=== PATIENT | female | born 1955 | race Caucasian/White ===

== ENCOUNTER → 2016-07-25 | Outpatient (CLI) | payer OTHER ==
[~2016-07-25] MED LIST: DEPO METHYLPREDNISOLONE 40 MG/ML SDV ONE; IOPAMIDOL (ISOVUE-370) 150 ML BTL IV ONE; LIDOCAINE 1% 30 ML SDV ONE; NA BICARBONATE 50 MEQ/50 ML VIAL ONE; ROPIVACAINE HCL 150 MG/30 ML INJ ONE
== END ==
LOC: FIMAGING 11:30
PROVIDERS: ATTEND Physician Assistant
PROC: 3E0U33Z Introduction of Anti-inflammatory into Joints, Percutaneous Approach (ICD-10-PCS; principal; 2016-07-25)
PROC: 3E0U3BZ Introduction of Anesthetic Agent into Joints, Percutaneous Approach (ICD-10-PCS; principal; 2016-07-25)
DX: M25.551 Pain in right hip (principal)
CPT/HCPCS: J1020; J2795; Q9967

== ENCOUNTER → 2016-09-23 | Outpatient (CLI) | payer OTHER ==
[~2016-09-23] MED LIST changes: +IOPAMIDOL (ISOVUE 370) 100 ML BTL IV ONE; -IOPAMIDOL (ISOVUE-370) 150 ML BTL IV ONE
== END ==
LOC: FIMAGING 12:41
PROVIDERS: ATTEND Radiology Diagnostic Radiology
PROC: 3E0U33Z Introduction of Anti-inflammatory into Joints, Percutaneous Approach (ICD-10-PCS; principal; 2016-09-23)
DX: M16.0 Bilateral primary osteoarthritis of hip (principal)
CPT/HCPCS: J1030; J2795; Q9967

== ENCOUNTER 2016-11-06 05:43 | Inpatient (IN) | payer OTHER ==
[2016-10-31 09:22] LABS: % IMMATURE GRANULYOCYTES 0.2 % (0.0-1.1); ABSOLUTE IMMATURE GRANULOCYTES 0.01 10^3/uL (0.00-0.10); ADD DIFF? NO; ADD MORPH? NO; ADD SCAN? NO; ATYPICAL LYMPHOCYTE FLAG 10 (0-99); FRAGMENT RBC FLAG 0 (0-99); HEMATOCRIT 44.5 % (38.0-47.0); HEMOGLOBIN 15.4 g/dL (12.6-16.3); LEFT SHIFT FLG 0 (0-99); LIPEMIA HEMOLYSIS FLAG 90 (0-99); MEAN CELL HEMOGLOBIN 31.2 pg (27.9-34.1); MEAN CELL HEMOGLOBIN CONCENTR. 34.6 g/dL (32.4-36.7); MEAN CELL VOLUME 90.3 fL (81.5-99.8); MEAN PLATELET VOLUME 11.5 fL (8.7-11.7); PLATELET CLUMPS FLAG 0 (0-99); PLATELET COUNT 237 10^3/uL (150-400); RED BLOOD CELL COUNT 4.93 10^6/uL (4.18-5.33)
[2016-10-31 09:36] LABS: ANION GAP 12 mEq/L (8-16); CALCIUM 9.7 mg/dL (8.5-10.4); CARBON DIOXIDE 28 mEq/l (22-31); CHLORIDE 98 mEq/L (97-110); GLOMERULAR FILTRATION RATE 56; GLUCOSE 92 mg/dL (70-100); POTASSIUM 4.4 mEq/L (3.5-5.2); SODIUM 138 mEq/L (134-144)
--- NOTE | 2016-11-01 13:59 | GHP ---
[f rep st] PREOP HISTORY AND PHYSICAL DATE OF ADMISSION: 11/06/2016 PROBLEM: Severe left knee OA. HISTORY OF PRESENT ILLNESS: The patient is a 61-year-old female who will be admitted for a left tot al knee arthroplasty with Dr. Durant at the [facility] on November 06. The patient lindquist s had chronic pain of the left knee. Previously, she has had viscosupplementation injections and co rtisone injections. They both helped for short periods of time. She has also tried and failed oral anti-inflammatories, both clfw-brz-gyhspfh and prescription strength. Over the past several weeks and months, the patient has had worsening left knee pain. She has had to alter her physical activit y because of the pain. She has nighttime pain. She does not use a cane or crutch for ambulation. Because of her recalcitrant response to conservative therapies and worsening and debilitating pain, she has elected to proceed with a left total knee arthroplasty. PAST MEDICAL HISTORY: Pertinent for hypertension, migraines, mild metal sensitivities of unknown me tals, arthritis and melanoma. No history of DVT, PE, ID, CAD or hepatitis. CURRENT MEDICATIONS: Clindamycin 1% topical gel, clobetasol 0.05% topical, Estrace 0.01% vaginal cr eam, hydrochlorothiazide 25 mg, losartan 100 mg, Maxalt 10 mg, meloxicam 15 mg, spironolactone 25 mg . ALLERGIES: She has no known drug allergies. She does report narcotics cause vomiting. SOCIAL HISTORY: The patient is a nonsmoker. Occasional alcohol intake. 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 She does live with others. FAMILY HISTORY: Pertinent for diabetes, hypertension, coronary artery disease and cancer. PHYSICAL EXAMINATION: GENERAL: She is a healthy-appearing 61-year-old female. VITALS: Height 5 f eet 7 inches tall, weight 200 pounds, BMI 31.3. HEENT: Head is normocephalic, atraumatic. Eyes ar e PERRLA. Conjunctivae and sclerae are clear. Mouth: She has good oral hygiene without any loose teeth. HEART: Regular rate and rhythm without murmurs, gallops, or rubs. LUNGS: Clear. EXTREMIT IES: Pertinent findings are limited to the patient's left knee. She has full knee extension, 110 d egrees of flexion. The knee is stable to exam. She has moderate patellofemoral crepitus along with medial joint line tenderness. No significant deformity is appreciated. DIAGNOSTIC IMAGING: Recent x-rays taken or the patient's left knee shows advanced medial compartmen t degenerative arthritis and patellofemoral degenerative arthritis. She has peripheral osteophyte f ormation and increased subchondral sclerosis, primarily of the medial compartment. IMPRESSION ON ADMISSION: 1. Severe left knee medial compartment and patellofemoral compartment osteoarthritis. 2. Hypertension. 3. History of occasional migraines. 4. History of melanoma. PLAN: The plan will be for the patient to undergo a left total knee arthroplasty with Dr. Durant at the [facility] on November 06, 2016. The surgery has been described to the patient inc luding the risks, benefits and expectations. She understands the importance of postoperative physic al therapy. She understands the risk of blood vessel or nerve injury, persistent knee pain and/or s tiffness, or need for future revision. All her questions have been answered, and she consents to marlow forrest here in the office today. Copy requested to: Dr. Santino Rosales /[id number]/MODL
[2016-11-06] MEDS ORDERED: DEXAMETHASONE 4 MG/ML VIAL IVP ONE (06:00)
[2016-11-06] MEDS ORDERED: TRANEXAMIC ACID 900 MG in NS 100 ML IV ONE (06:00)
[2016-11-06] MEDS ORDERED: FAMOTIDINE 20 MG TAB PO ONE (06:00)
[2016-11-06] MEDS ORDERED: ACETAMINOPHEN 325 MG TAB PO ONE (06:00)
[2016-11-06] MEDS ORDERED: POVIDONE-IODINE 20 ML in SODIUM CL IRRIG SOLUTION 500 ML IRR ONE (06:00)
[2016-11-06] MEDS ORDERED: ROPI/epINEPH/KETOROLAC IU ONE (06:00)
[2016-11-06] MEDS ORDERED: LIDOCAINE 1% 5 ML SDV ID PRN (06:08)
[2016-11-06] MEDS ORDERED: LR 1,000 ML IV ONE (06:08)
[2016-11-06] MEDS ORDERED: ceFAZolin 1 GM/5 ML SYR ONE (06:35)
[2016-11-06] MEDS ORDERED: VANCOMYCIN 1 GM VIAL ONE ×2 (06:35→06:36)
--- NOTE | 2016-11-06 06:55 | PDANEPAE ---
ANE History of Present Illness Osteoarthritis ANE Past Medical History - Cardiovascular History Hx Hypertension: Yes Hx Arrhythmias: No Hx Chest Pain: No Hx Coronary Artery / Peripheral Vascular Disease: No Hx CHF / Valvular Disease: No Hx Palpitations: No - Pulmonary History Hx COPD: No Hx Asthma/Reactive Airway Disease: No Hx Recent Upper Respiratory Infection: No Hx Oxygen in Use at Home: No - Neurologic History Hx Cerebrovascular Accident: No Hx Seizures: No Hx Dementia: No - Endocrine History Hx Diabetes: No - Renal History Hx Renal Disorders: No - Liver History Hx Hepatic Disorders: No - Neurological & Psychiatric Hx Hx Neurological and Psychiatric Disorders: Yes - Cancer History Hx Cancer: No - Congenital Disorder History Hx Congenital Disorders: No - GI History Hx Gastrointestinal Disorders: No - Chronic Pain History Chronic Pain: Yes ANE Review of Systems - Exercise capacity METS (RN): 4 METS - Systems Neurological: Reports: other (Fibromyalgia, but no specific treatment) ANE Patient History - Allergies Allergies/Adverse Reactions: No Known Allergies Allergy (Unverified 10/22/16 14:40) - Home Medications Home Medications: Cholecalciferol Vit D3 [Vitamin D3 (*)] 1,000 units PO DAILY 10/22/16 [Last Taken Unknown] Cyanocobalamin [Vitamin B12 (*)] 1,000 mcg PO DAILY 10/22/16 [Last Taken Unknown ] Estradiol [Estrace Vaginal (*)] 42.5 gm VG Q3D 10/22/16 [Last Taken Unknown] Glucosamine/Chondroitin [Glucosamine/Chondroitin (*)] 1 each PO DAILY 10/22/16 [ Last Taken Unknown] Hydrochlorothiazide [HCTZ (*)] 25 mg PO DAILY 10/22/16 [Last Taken Unknown] Losartan Potassium [Cozaar] 100 mg PO DAILY 10/22/16 [Last Taken Unknown] Meloxicam 15 mg PO DAILY 10/22/16 [Last Taken Unknown] Multivitamins [Multivitamin (*)] 1 each PO DAILY 10/22/16 [Last Taken Unknown] Spironolactone [Aldactone 25 MG (*)] 25 mg PO BID 10/22/16 [Last Taken Unknown] - NPO status NPO Since - Liquids (Date): 11/05/16 NPO Since - Liquids (Time): 21:30 NPO Since - Solids (Date): 11/05/16 NPO Since - Solids (Time): 21:30 - Smoking Hx Smoking Status: Never smoked - Family Anes Hx Family Hx Anesthesia Complications: none ANE Labs/Vital Signs - Labs Result Diagrams: 10/31/16 09:12 10/31/16 09:12 - Vital Signs Blood Pressure: 157/94 Heart Rate: 59 Respiratory Rate: 18 O2 Sat (%): 95 Height: 170.18 cm Weight: 90.718 kg
--- NOTE | 2016-11-06 07:01 | PDHPUP ---
History & Physical Update H&P update statement: This history and physical update is based on an assessment of the patient which was completed after admission or registration (within 24 hours), but prior to the surgery/procedure. H&P update: H&P reviewed & patient examined, no change in patient's condition since H&P completed
[2016-11-06] MEDS ORDERED: KETAMINE 100 MG/10 ML SYR ONE (07:02)
[2016-11-06] MEDS ORDERED: PROPOFOL/EMULSION 500 MG/50 ML BOTTLE IV ONE (07:02)
[2016-11-06] MEDS ORDERED: ONDANSETRON 4 MG/2 ML VIAL ONE (07:02)
[2016-11-06] MEDS ORDERED: fentaNYL 100 MCG/2 ML INJ ONE (07:02)
[2016-11-06] MEDS ORDERED: BUPIVACAINE/EPI 0.25% 30 ML SDV ONE (07:04)
[2016-11-06] MEDS ORDERED: DEXAMETHASONE 4 MG/ML VIAL ONE (07:09)
[2016-11-06] MEDS: CEFAZOLIN 2 GM/DEXTR 100 ML IV ONE ×2 (07:25→10:51)
[2016-11-06] MEDS ORDERED: NALOXONE HCL 0.4 MG/ML INJ IVP PRN (08:06)
[2016-11-06] MEDS ORDERED: fentaNYL 100 MCG/2 ML INJ IVP PRN (08:06)
[2016-11-06] MEDS ORDERED: ACETAMINOPHEN 500 MG TAB PO PRN (08:06)
[2016-11-06] MEDS ORDERED: HYDROmorphONE/DILAUDID 1 MG/ML SYR IVP PRN (08:06)
[2016-11-06] MEDS ORDERED: OXYCODONE/APAP 5/325 TAB PO PRN (08:06)
[2016-11-06] MEDS ORDERED: ONDANSETRON 4 MG/2 ML VIAL IVP PRN ×2 (08:12→09:11)
[2016-11-06] MEDS ORDERED: MEPERIDINE 25 MG/ML SYR IVP PRN (08:12)
[2016-11-06] MEDS ORDERED: LABETALOL HCL 5 MG/ML 20 ML MDV IVP PRN (08:12)
[2016-11-06] MEDS ORDERED: METOCLOPRAMIDE 10 MG/2 ML VIAL IVP PRN ×2 (08:12→09:11)
[2016-11-06] MEDS ORDERED: LR 500 ML IV PRN (08:12)
[2016-11-06] MEDS ORDERED: ENALAPRILAT DIHYDRATE 1.25 MG/ML VIAL IVP PRN (08:12)
[2016-11-06] MEDS ORDERED: PROMETHAZINE HCL 25 MG/ML INJ IVP PRN ×2 (08:12→09:11)
--- NOTE | 2016-11-06 09:01 | POSTOPPROG ---
Post Op Note Date of Operation: 11/06/16 Surgeon: Jeremy Durant [employer]itary Landfill Supervisor: Edgar Anesthesiologist: Safia Anesthesia: IV Sedation, Spinal Post-op Diagnosis: L knee arthritis Procedure: L TKA Inf/Abcess present in the surg proc area at time of surgery?: No EBL: 50-100 (add canal block)
[2016-11-06] MEDS ORDERED: PROMETHAZINE HCL 25 MG SUPPR PR PRN (09:11)
[2016-11-06] MEDS ORDERED: NS 500 ML IV PRN (09:11)
[2016-11-06] MEDS ORDERED: BISACODYL 10 MG SUPP PR PRN (09:11)
[2016-11-06] MEDS ORDERED: MAGNESIUM HYDROXIDE 30 ML UDCUP PO PRN (09:11)
[2016-11-06] MEDS ORDERED: diphenhydrAMINE 25 MG CAP PO PRN (09:11)
[2016-11-06] MEDS ORDERED: ONDANSETRON DISINTEGRATING 4 MG TAB PO PRN (09:11)
[2016-11-06] MEDS ORDERED: TEMAZEPAM 15 MG CAP PO PRN (09:11)
[2016-11-06] MEDS ORDERED: CYCLOBENZAPRINE 10 MG TAB PO PRN (09:11)
[2016-11-06] MEDS ORDERED: traMADol 50 MG TAB PO PRN (09:11)
[2016-11-06] MEDS ORDERED: LACTULOSE 20 GM/30 ML UDCUP PO PRN (09:11)
[2016-11-06] MEDS ORDERED: DIPHENOXYLATE/ATROPINE LOMOTIL 1 TAB PO PRN (09:11)
[2016-11-06] MEDS ORDERED: POLYETHYLENE GLYCOL 3350 17 GM PKT PO PRN (09:11)
[2016-11-06] MEDS ORDERED: PHARMACY PAIN CONSULT 1 EA MISC PRN (09:11)
[2016-11-06] MEDS ORDERED: LR 1,000 ML IV SCH (09:30)
--- NOTE | 2016-11-06 09:59 | GOP ---
[f rep st] OPERATIVE REPORT DATE OF OPERATION: 11/06/2016 SURGEON: Jeremy Durant MD PENSION MANAGER: 1. Onel Walden CFA. 2. Avery Son PA-C. ANESTHESIA: Combination of Marcaine, spinal, IV sedation, and adductor canal block. ANESTHESIOLOGIST: José Miguel Baig MD. PREOPERATIVE DIAGNOSIS: Left knee severe degenerative arthritis. POSTOPERATIVE DIAGNOSIS: Left knee severe degenerative arthritis. PROCEDURE PERFORMED: Left total knee arthroplasty, cemented, Degroot and Nephew Journey II, posterior stabilized. FINDINGS: DESCRIPTION OF PROCEDURE: The patient was given 2 g of preoperative IV Ancef within 60 minutes of s urgery. She also received IV tranexamic acid at a dose of 10 mg/kg. She was placed on the operatin g room table and given spinal anesthesia with Marcaine by Dr. Baig. She was then placed supine and given IV sedation. A Mark catheter was not used. She wore SUSHIL stocking and SCD on the nonoperati ve leg. Her left lower extremity was prepped with ChloraPrep from the upper thigh tourniquet to the tips of the toes. It was draped free using sterile sheets, stockinette, and Ioban plastic adhesive drape. The lower leg was wrapped with compressive Coban. The leg was exsanguinated with elevation and a 6-inch compressive wrap, and the pneumatic tourniquet was inflated to 250 mmHg. The World Health Organization time-out was performed to verify the correct patient identity and the correct surgical side and site. The Reading time-out was also performed. The Quietymeayo leg holding device was sterilely attached to the operating room table and used throughout the procedure to help position the knee. A straight midline incision was made centered on the ryan lla. Subcutaneous tissues were sharply divided, and hemostasis was obtained using electrocautery. A medial subcutaneous flap was developed, and the capsule and synovium were opened in medial parapat ellar fashion. Extensive degenerative changes were present in her medial compartment and patellofem oral joint. She was eroded down to subchondral bone. The medial capsule and periosteum were elevat ed off the rim and medial tibial plateau all the way around to the posteromedial corner. Her medial collateral ligament was released enough to balance the medial side of the knee. In order to improve exposure, her patella was prepared first. The original thickness of the patella was measured. Peripheral osteophytes were removed. I cut a flat surface on the back of the johnny kong. She was sized for a 38 mm resurfacing component. I removed enough bone from the patella such th at the remaining bone, plus the thickness of the patellar component recreated the original thickness of the patella. The composite thickness of her patella was 23 mm. The intramedullary alignment guide system was used to set up the distal femoral cut. The distal fem ur was cut in 5 degrees of valgus. I made a +2 mm cut on the distal femur. The sizing jig was used to determine proper femoral sizing. I shifted the jig anteriorly 2 mm in order to accommodate a si ze 5 femoral component without notching the anterior cortex. The 5 in 1 cutting block was applied, and the anterior and posterior condylar cuts and chamfer cuts were made. The final jig was used to remove the central portion of the distal femur to accommodate the posterior stabilized femoral compo nent. I was careful to determine proper rotation by referencing off [place] line. Each cut was c hecked for accuracy before and after it was made. The femur was sized for a size 5 posterior stabil ized component. The trial component was tapped securely into place and was a good fit. Next, the tibia was prepared. The proximal tibial cut was made using the extramedullary alignment g uide system. The cut was made in a few degrees of posterior slope. I was careful to achieve proper varus/valgus alignment and proper rotation. The posterior compartment was cleared of meniscal remn ants. Osteophytes were removed from the back of her femoral condyles. The flexion and extension ga ps were measured. Her extension gap was about 1 mm greater than her flexion gap. The tibia was sized for a size 5 component. With the trial components in place, I selected a 10 mm polyethylene posterior stabilized tibial insert. The knee came to full extension and flexed to 125 degrees. There was no overstuffing in flexion. The collateral ligaments were stable and balanced i n 90 degrees of flexion and full extension. She had 1 or 2 mm of equal medial and lateral laxity in full extension. The trial patellar button was applied, and patellar tracking was checked. Trackin g was excellent without any digital pressure. 40 mL of the joint anesthetic cocktail were injected into the posterior capsule, the periarticular s tructures, the quadriceps muscle and tendon areas, and the subcutaneous tissues along the skin edges . A second dose of IV tranexamic acid was given at a dose of 10 mg/kg. The surfaces were prepared for cementing. They were carefully cleaned with the pulsating lavage irr igation and thoroughly dried. The CarboJet device was used to blow dry the cancellous surfaces. A double batch of high viscosity methylmethacrylate cement with 2 g of powdered vancomycin added was m ixed. While it was still in a semi liquid state, all 3 components were cemented in place. Excess c ement was removed before it hardened. The 10 mm trial tibial insert was re-tried and was the proper thickness. The actual component was i nserted and locked into place. The knee was thoroughly irrigated 1 final time with a dilute Betadin e solution. The tourniquet was deflated, and the total tourniquet time was 54 minutes. The vastus medialis portion of the extensor mechanism was repaired with several interrupted figure-o f-eight #2 FiberWire sutures. The capsule and synovium were closed first with multiple interrupted bcmlpp-by-ljxll 0 PDS sutures followed by a running #2 barbed Ethicon Stratafix PDO suture. The sub cutaneous tissues were closed with a running 0 barbed Ethicon Stratafix Monoderm suture. The skin w as closed with a running 3-0 barbed Ethicon Stratafix Monoderm subcuticular suture. The skin was se aled with half-inch Steri-Strips. The wound was covered with Xeroform gauze and flat 4 x 4's. The knee was wrapped with a Kerlix and a 6-inch compressive wrap. A long-leg SUSHIL stocking and SCD were applied followed by the cooling device. The patient wore a stocking and SCD on the opposite leg dur ing the procedure. I used a size 5 cemented Degroot Nephew Oxinium posterior stabilized femoral component, size 5 cemente d tibial base plate, a 10 mm posterior stabilized insert, and a 38 mm cemented round all-polyethylen e resurfacing patellar component. The estimated blood loss following placement of the tourniquet was about 100 cc. The sponge and needle count were correct on 2 occasions. The patient was awakened from anesthesia, transferred to her [facility] and taken to PACU in sa tisfactory condition. There were no intraoperative complications. In the PACU, for additional postoperative pain control, Dr. Baig performed an adductor canal block. Onel Walden and Murtaza Son acted as surgical assistants. Their assistance was a medical benjamin angel. Copy requested to: Dr. Santino Rosales /[id number]/MODL
[2016-11-06] MEDS: ACETAMINOPHEN 325 MG TAB PO SCH ×2 (11:48→17:54)
[2016-11-06] MEDS: KETOROLAC 30 MG/1 ML SDV IVP PRN ×2 (11:52→18:36)
[2016-11-06] MEDS: oxyCODONE IR 5 MG TAB PO PRN ×3 (13:37→18:36)
[2016-11-06] MEDS: ceFAZolin 2 GM/DEXTROSE 100 ML IV SCH ×2 (13:39→21:48)
[2016-11-06] MEDS: TRANEXAMIC ACID 650 MG TAB PO SCH ×2 (15:26→21:44)
[2016-11-06 16:14] VITALS: RESP 16
[2016-11-06] MEDS: ASPIRIN 325 MG TAB PO SCH (21:47)
[2016-11-06] MEDS: FAMOTIDINE 20 MG TAB PO SCH (21:47)
[2016-11-06] MEDS: SPIRONOLACTONE 25 MG TAB PO SCH (21:48)
[2016-11-06] MEDS: SENNOSIDES/DOCUSATE SODIUM TAB PO SCH (21:48)
[2016-11-07] MEDS: oxyCODONE IR 5 MG TAB PO PRN ×3 (00:10→08:55)
[2016-11-07] MEDS: ACETAMINOPHEN 325 MG TAB PO SCH ×3 (00:12→12:14)
--- NOTE | 2016-11-07 07:14 | SOAPPROG ---
SOAP Progress Note Assessment/Plan: Assessment: Afebrile. Awake and alert. Moderate pain. Has been walking in room. On nasal O2 H/H is adequate. Mild knee swelling. She has 90 degrees of flexion. Plan:PT today. Home this afternoon. 11/07/16 07:13 Objective: Vital Signs Temp Pulse Resp BP Pulse Ox 36.9 C 57 L 16 145/92 H 94 11/07/16 04:00 11/07/16 04:00 11/07/16 04:00 11/07/16 04:00 11/07/16 04:00 Laboratory Results 11/07/16 04:27 10/31/16 09:12 11/06/16 11/07/16 11/08/16 05:59 05:59 05:59 Intake Total 2150 Output Total 1200 Balance 950 ICD10 Worksheet Patient Problems: Problems Problem Status Onset Osteoarthritis of left knee Acute
--- NOTE | 2016-11-07 07:29 | PDIAF ---
- Diagnosis Diagnosis: left knee OA Code Status: Full Code - Medication Management Discharge Medications: Medications to Continue on Transfer Cholecalciferol Vit D3 [Vitamin D3 (*)] 1,000 units PO DAILY 10/22/16 [Last Taken 11/05/16] Cyanocobalamin [Vitamin B12 (*)] 1,000 mcg PO DAILY 10/22/16 [Last Taken ] Estradiol [Estrace Vaginal (*)] 42.5 gm VG Q3D 10/22/16 [Last Taken 11/05/16] Glucosamine/Chondroitin [Glucosamine/Chondroitin (*)] 1 each PO DAILY 10/22/16 [ Last Taken 11/05/16] Hydrochlorothiazide [HCTZ (*)] 25 mg PO DAILY 10/22/16 [Last Taken 11/05/16] Losartan Potassium [Cozaar] 100 mg PO DAILY 10/22/16 [Last Taken Unknown] Meloxicam 15 mg PO DAILY 10/22/16 [Last Taken 11/05/16] Multivitamins [Multivitamin (*)] 1 each PO DAILY 10/22/16 [Last Taken 11/05/16] Spironolactone [Aldactone 25 MG (*)] 25 mg PO BID 10/22/16 [Last Taken 11/05/16] Acetaminophen [Tylenol 325mg (*)] 650 mg PO Q6HRS #0 tab 11/07/16 [Last Taken Unknown] Aspirin [Aspirin 325 mg (*)] 325 mg PO DAILY #21 tab 11/07/16 [Last Taken Unknown] Ondansetron Odt [Zofran Odt 4 mg (*)] 4 mg PO Q4HRS PRN #0 tab 11/07/16 [Last Taken Unknown] oxyCODONE IR [Oxycodone Ir (*)] 5 - 10 mg PO Q3HRS PRN #0 tab 11/07/16 [Last Taken Unknown] traMADol [Ultram 50 mg (*)] 50 mg PO Q6HRS PRN #0 tab 11/07/16 [Last Taken Unknown] Discharge Medications: Refer to the Discharge Home Medication list for PRN reason. PICC Care - Routine: N/A - Orders Services needed: Home Care, Physical Therapy Home Care Face to Face: I certify that this patient was under my care and that I had the required vykg-wy-ernq encounter meeting the encounter requirements on the discharge day. My findings support the fact that the patient is homebound as defined in CMS Chapter 7 Medicare Benefits Manual 30.1.1, The condition of the patient is such that there exists a normal inability to leave home and consequently, leaving home would require a considerable and taxing effort. Diet Recommendation: no restrictions on diet Diet Texture: Regular Texture Diet Mark: Not applicable Jamar Stockings Discontinue Date: 1 week Wound Care Instructions: keep clean and dry. You may shower. Activity/Weight Bearing Restrictions: as tolerated. Additional: Zero knee while in bed as tolerated. - Follow Up Care Current Providers and Referrals: MELO CARTER [Other] Jeremy Durant MD [Medical Doctor] - 11/21/16 11:00 am
--- NOTE | 2016-11-07 07:32 | GDS ---
[f rep st] DISCHARGE SUMMARY ADMISSION DIAGNOSIS: Left knee degenerative arthritis. DISCHARGE DIAGNOSIS: Left knee degenerative arthritis. OPERATION PERFORMED: November 06, 2016, a left total knee arthroplasty. POSTOPERATIVE COMPLICATIONS: None. CONDITION ON DISCHARGE: Improved. DESCRIPTION OF HOSPITAL COURSE: The patient was admitted to the hospital on the morning of surgery. Her admission CBC was normal. The same day, under a combination of Marcaine, spinal, IV sedation and an adductor canal block, she underwent a left total knee arthroplasty. Postoperatively, she was treated with multimodal DVT prophylaxis, including aspirin. On the first postoperative day, her he moglobin and hematocrit were 11.0 and 31.0. She was seen by Physical Therapy and made good progress with ambulation and stairs. By the time of discharge, she was afebrile and was independent, walkin g with her walker. DISPOSITION: The patient is discharged to her home. She will have home physical therapy. Continue SUSHIL stockings for 1 week. Continue aspirin 325 mg p.o. daily for 21 days. She may progress to ful l weightbearing on the left as tolerated. Use SUSHIL stockings for 1 week. She has prescriptions for oxycodone and tramadol for pain control. I will see her back in the office on November 21, 2016. If an y problems, she is to call me at the office. Copy requested to: Dr. Santino Rosales /[id number]/MODL
[2016-11-07] MEDS: SPIRONOLACTONE 25 MG TAB PO SCH (08:35)
[2016-11-07] MEDS: TRANEXAMIC ACID 650 MG TAB PO SCH (08:35)
[2016-11-07] MEDS: SENNOSIDES/DOCUSATE SODIUM TAB PO SCH (08:36)
[2016-11-07] MEDS: ASPIRIN 325 MG TAB PO SCH (08:36)
[2016-11-07] MEDS: FAMOTIDINE 20 MG TAB PO SCH (08:36)
[2016-11-07] MEDS ORDERED: HYDROCHLOROTHIAZIDE 25 MG TAB PO SCH (09:00)
[2016-11-07] MEDS ORDERED: LOSARTAN POTASSIUM 50 MG TAB PO SCH (09:00)
[2016-11-07 09:16] VITALS: BP 134/85; PULSE 60; TEMP 98.2
[2016-11-07 10:20] VITALS: O2SAT 94
[2016-11-07] MEDS ORDERED: PNEUMOCOCCAL 0.5ML VACCINE VIAL IM ONE (11:14)
[2016-11-09] MEDS ORDERED: ESTRADIOL 42.5 GM CRTUBE VG SCH (08:00)
== END 2016-11-07 13:11 | disposition home health service (06) | DRG 470 ==
LOC: F3N 05:43
PROVIDERS: ADMIT Orthopaedic Surgery; ATTEND Orthopaedic Surgery
PROC: 0SRD0J9 Replacement of Left Knee Joint with Synthetic Substitute, Cemented, Open Approach (ICD-10-PCS; principal; 2016-11-06 07:15)
DX: M17.12 Unilateral primary osteoarthritis, left knee (principal); I10 Essential (primary) hypertension; G43.909 Migraine, unspecified, not intractable, without status migrainosus
CPT/HCPCS: 97116-GP; 97161-GP; 97165-GO; C1713; J0171; J0690; J1100; J1885; J2405; J2704; J2795; J3010; J3370

== ENCOUNTER → 2017-01-23 | Outpatient (CLI) | payer OTHER | LOC: FIMAGING 15:05 | PROVIDERS: ATTEND Obstetrics & Gynecology Gynecology | DX: Z12.31 Encounter for screening mammogram for malignant neoplasm of breast (principal); Z80.3 Family history of malignant neoplasm of breast | CPT/HCPCS: G0202 ==

== ENCOUNTER → 2017-03-03 | Outpatient (CLI) | payer OTHER ==
[~2017-03-03] MED LIST changes: -LIDOCAINE 1% 30 ML SDV ONE; +LIDOCAINE 1% 300 MG/30 ML SDV ONE; -NA BICARBONATE 50 MEQ/50 ML VIAL ONE
== END ==
LOC: FIMAGING 10:07
PROVIDERS: ATTEND Orthopaedic Surgery
PROC: 3E0U3BZ Introduction of Anesthetic Agent into Joints, Percutaneous Approach (ICD-10-PCS; principal; 2017-03-03)
PROC: 3E0U33Z Introduction of Anti-inflammatory into Joints, Percutaneous Approach (ICD-10-PCS; principal; 2017-03-03)
DX: M25.551 Pain in right hip (principal)
CPT/HCPCS: J1030; J2795; Q9967

== ENCOUNTER 2017-05-23 06:11 | Inpatient (IN) | payer OTHER ==
[~2017-05-23 06:11] MED LIST changes: -DEPO METHYLPREDNISOLONE 40 MG/ML SDV ONE; -IOPAMIDOL (ISOVUE 370) 100 ML BTL IV ONE; -LIDOCAINE 1% 300 MG/30 ML SDV ONE; +ROPIVACAINE 0.2% 80 MG, EPINEPHrine 0.2 MG, KETOROLAC TROMETHAMINE 30 MG in SYRINGE 0 ML IU ONE; -ROPIVACAINE HCL 150 MG/30 ML INJ ONE; +TRANEXAMIC ACID 3,000 MG in NS 50 ML IRR ONE
[2017-05-23] MEDS ORDERED: TRANEXAMIC ACID 3,000 MG/50 ML BAG IRR ONE (06:21)
[2017-05-23] MEDS ORDERED: ceFAZolin 2 GM/SWFI 2 GM/20 ML SYR IVP ONE (06:29)
[2017-05-23] MEDS ORDERED: FAMOTIDINE 20 MG TAB PO ONE (06:29)
[2017-05-23] MEDS ORDERED: ACETAMINOPHEN 325 MG TAB PO ONE (06:29)
[2017-05-23] MEDS ORDERED: DEXAMETHASONE 4 MG/ML VIAL IVP ONE (06:29)
[2017-05-23] MEDS ORDERED: LR 1,000 ML IV ONE (06:30)
--- NOTE | 2017-05-23 07:32 | PDANEPAE ---
ANE History of Present Illness 61 yo F w OA here for R SARAHY ANE Past Medical History - Cardiovascular History Hx Hypertension: Yes Hx Arrhythmias: No Hx Chest Pain: No Hx Coronary Artery / Peripheral Vascular Disease: No Hx CHF / Valvular Disease: No Hx Palpitations: No Cardiovascular History Comment: father had htn and an aneuysm, mother had chf, brother of mi in his 40's - Pulmonary History Hx COPD: No Hx Asthma/Reactive Airway Disease: No Hx Recent Upper Respiratory Infection: No Hx Oxygen in Use at Home: No Hx Sleep Apnea: No Sleep Apnea Screening Result - Last Documented: Negative - Neurologic History Hx Cerebrovascular Accident: No Hx Seizures: No Hx Dementia: No - Endocrine History Hx Diabetes: No - Renal History Hx Renal Disorders: No - Liver History Hx Hepatic Disorders: No - Neurological & Psychiatric Hx Hx Neurological and Psychiatric Disorders: No Neurological / Psychiatric History Comment: anxiety - Cancer History Hx Cancer: No Cancer History Comment: melanoma abdomen 2009 - Congenital Disorder History Hx Congenital Disorders: No - GI History Hx Gastrointestinal Disorders: No - Other Health History Other Health History: osteo arthritis - Chronic Pain History Chronic Pain: Yes - Surgical History Prior Surgeries: tka 2017. left knee scope. right knee acl replaced. fibroid surgery. back surgery. right foot plantar fascitis ANE Review of Systems Review of Systems: - Exercise capacity Exercise capacity: >=4 METS METS (RN): 4 METS ANE Patient History - Allergies Allergies/Adverse Reactions: tramadol Allergy (Verified 05/23/17 06:33) - Home Medications Home medications: home medication list seen and reviewed Home Medications: Cholecalciferol Vit D3 [Vitamin D3 (*)] 1,000 units PO DAILY 10/22/16 [Last Taken 05/09/17] Cyanocobalamin [Vitamin B12 (*)] 1,000 mcg PO DAILY 10/22/16 [Last Taken ] Estradiol [Estrace Vaginal (*)] 42.5 gm VG Q14D 10/22/16 [Last Taken 04/23/17] Hydrochlorothiazide [HCTZ (*)] 25 mg PO DAILY 10/22/16 [Last Taken 05/22/17] Losartan Potassium [Cozaar] 100 mg PO DAILY 10/22/16 [Last Taken 05/23/17 05:30] Meloxicam 15 mg PO DAILY 10/22/16 [Last Taken 05/09/17] Multivitamins [Multivitamin (*)] 1 each PO DAILY 10/22/16 [Last Taken 05/09/17] Spironolactone [Aldactone 25 MG (*)] 25 mg PO BID 10/22/16 [Last Taken 05/22/17] Acetaminophen [Tylenol 325mg (*)] 650 mg PO BID 04/18/17 [Last Taken 05/22/17] - NPO status NPO Status: no food or drink >8 hours NPO Since - Liquids (Date): 05/22/17 NPO Since - Liquids (Time): 22:00 NPO Since - Solids (Date): 05/22/17 NPO Since - Solids (Time): 19:00 - Anes Hx Anes Hx: no prior problems - Smoking Hx Smoking Status: Former smoker - Alcohol Use Alcohol Use: Rarely - Family Anes Hx Family Anes Hx: none Family Hx Anesthesia Complications: none ANE Labs/Vital Signs - Vital Signs Blood Pressure: 144/93 Heart Rate: 69 Respiratory Rate: 16 O2 Sat (%): 92 Height: 170.18 cm Weight: 92.986 kg ANE Physical Exam - Airway Neck exam: FROM Mallampati Score: Class 2 Mouth exam: normal dental/mouth exam - Pulmonary Pulmonary: no respiratory distress, clear to auscultation - Cardiovascular Cardiovascular: regular rate and rhythym, no murmur, rub, or gallop - ASA Status ASA Status: II ANE Anesthesia Plan Anesthesia Plan: GA with mask, spinal Total IV Anesthesia: Yes
[2017-05-23] MEDS ORDERED: KETAMINE 200 MG/20 ML VIAL ONE (08:04)
[2017-05-23] MEDS ORDERED: PROPOFOL/EMULSION 500 MG/50 ML BOTTLE IV ONE (08:07)
[2017-05-23] MEDS ORDERED: diphenhydrAMINE 25 MG CAP PO PRN (09:44)
[2017-05-23] MEDS ORDERED: DIPHENOXYLATE/ATROPINE LOMOTIL 1 TAB PO PRN (09:44)
[2017-05-23] MEDS ORDERED: CYCLOBENZAPRINE 10 MG TAB PO PRN (09:44)
[2017-05-23] MEDS ORDERED: METOCLOPRAMIDE 10 MG/2 ML VIAL IVP PRN (09:44)
[2017-05-23] MEDS ORDERED: MAGNESIUM HYDROXIDE 30 ML UDCUP PO PRN (09:44)
[2017-05-23] MEDS ORDERED: PROMETHAZINE HCL 25 MG/ML INJ IVP PRN ×2 (09:44→09:57)
[2017-05-23] MEDS ORDERED: TEMAZEPAM 15 MG CAP PO PRN (09:44)
[2017-05-23] MEDS ORDERED: PROMETHAZINE HCL 25 MG SUPPR PR PRN (09:44)
[2017-05-23] MEDS ORDERED: ONDANSETRON DISINTEGRATING 4 MG TAB PO PRN (09:44)
[2017-05-23] MEDS ORDERED: LACTULOSE 20 GM/30 ML UDCUP PO PRN (09:44)
[2017-05-23] MEDS ORDERED: ONDANSETRON 4 MG/2 ML VIAL IVP PRN ×2 (09:44→09:57)
[2017-05-23] MEDS ORDERED: POLYETHYLENE GLYCOL 3350 17 GM PKT PO PRN (09:44)
[2017-05-23] MEDS ORDERED: BISACODYL 10 MG SUPP PR PRN (09:44)
--- NOTE | 2017-05-23 09:44 | POSTOPPROG ---
Post Op Note Date of Operation: 05/23/17 Surgeon: Jamia Olguin Multimedia Coordinator: issa olguin Anesthesiologist: dr. sudhakar bond Anesthesia: Spinal Pre-op Diagnosis: right hip OA Post-op Diagnosis: same Indication: right hip pain due to OA that failed conservative measures Procedure: R SARAHY ant approach Findings: severe hip OA Inf/Abcess present in the surg proc area at time of surgery?: No EBL: 100-500
[2017-05-23] MEDS ORDERED: fentaNYL 100 MCG/2 ML INJ IVP PRN (09:57)
[2017-05-23] MEDS ORDERED: NALOXONE HCL 0.4 MG/ML INJ IVP PRN (09:57)
[2017-05-23] MEDS ORDERED: HYDROmorphONE/DILAUDID 1 MG/ML INJ IVP PRN (09:57)
[2017-05-23] MEDS ORDERED: OXYCODONE/APAP 5/325 TAB PO PRN (09:57)
[2017-05-23] MEDS ORDERED: HYDROCODONE/APAP 5/325 TAB PO PRN (09:57)
[2017-05-23] MEDS ORDERED: ACETAMINOPHEN 500 MG TAB PO PRN (09:57)
[2017-05-23] MEDS ORDERED: LR 1,000 ML IV SCH (10:00)
[2017-05-23] MEDS: oxyCODONE IR 5 MG TAB PO PRN ×4 (11:39→22:52)
[2017-05-23] MEDS: ACETAMINOPHEN 325 MG TAB PO SCH ×3 (11:39→22:52)
--- NOTE | 2017-05-23 14:20 | POSTANESTH ---
Post Anesthetic Evaluation Cardiovascular Status: Normal, Stable, Similar to Pre-Op Cond Respiratory Status: Normal, Stable, Similar to Pre-op Cond. Level of Consciousness/Mental Status: Can Participate in Eval, Alert and Oriented Pain Control: Adequate, Prn Tx Ordered Nausea/Vomiting Control: Adequate, Prn Tx Ordered Complications Possibly Related to Anesthesia: None Noted
[2017-05-23] MEDS: ceFAZolin 2 GM/DEXTROSE 100 ML IV SCH ×2 (14:51→22:51)
--- NOTE | 2017-05-23 15:58 | ASMTCMCOM ---
CM Note CM Note Notes: Pt indicated she was interested in HHC in the [facility] pre-surgery call; today PT rec home vs. outpatient. This CM spoke w pt who indicates she will have support of her adult children caring for her and will not have HHC. CM available for changes/needs. Date Signed: 05/23/2017 03:58 PM Electronically Signed By:XOCHITL Burnette
[2017-05-23] MEDS: SENNOSIDES/DOCUSATE SODIUM TAB PO SCH (20:35)
[2017-05-23] MEDS: ASPIRIN EC 81 MG TAB PO SCH (20:36)
[2017-05-23] MEDS: SPIRONOLACTONE 25 MG TAB PO SCH (20:36)
[2017-05-23] MEDS: FAMOTIDINE 20 MG TAB PO SCH (20:36)
[2017-05-24] MEDS: oxyCODONE IR 5 MG TAB PO PRN ×2 (03:46→09:13)
[2017-05-24] MEDS: ACETAMINOPHEN 325 MG TAB PO SCH ×3 (05:12→14:10)
[2017-05-24] MEDS ORDERED: NON-FORMULARY NEW DRUG (Losartan Potassium [Cozaar] 100 MG) PO SCH (09:00)
[2017-05-24] MEDS ORDERED: HYDROCHLOROTHIAZIDE 25 MG TAB PO SCH (09:00)
[2017-05-24] MEDS ORDERED: LOSARTAN POTASSIUM 50 MG TAB PO SCH (09:00)
[2017-05-24] MEDS: FAMOTIDINE 20 MG TAB PO SCH (09:07)
[2017-05-24] MEDS: SPIRONOLACTONE 25 MG TAB PO SCH (09:07)
[2017-05-24] MEDS: ASPIRIN EC 81 MG TAB PO SCH (09:07)
[2017-05-24] MEDS: SENNOSIDES/DOCUSATE SODIUM TAB PO SCH (09:08)
--- NOTE | 2017-05-24 11:57 | SOAPPROG ---
SOAP Progress Note Assessment/Plan: Assessment: Patient is doing well POD 1 s/p R SARAHY pain is well controlled anemia: level expected initially postop VTE ppx: recommend aspirin 81 mg twice daily for 4 weeks postop D/c planning: d/c to home today nausea; recommend zofran, continue oral fluid intake as tolerated. patient has history of exposure to norovirus at her work, [employer] may be contributing to her nausea and heat flashes. continue to monitor. zofran was sent to her pharmacy via [facility] EMR system. Plan: 05/24/17 11:54 Subjective: Christina is resting comfortably, states mod pain overnight but improved this morning. c/o nausea, denies emesis, denies SOB, chest pain. Patient works at [employer] and states they recently had outbreak of norovirus. c/o flashes of warmth and nausea. Objective: Vital Signs Temp Pulse Resp BP Pulse Ox 36.9 C 63 18 135/72 H 94 05/24/17 08:10 05/24/17 08:10 05/24/17 08:10 05/24/17 09:07 05/24/17 08:10 Laboratory Results 05/24/17 05:00 05/23/17 05/24/17 05/25/17 05:59 05:59 05:59 Intake Total 1850 Output Total 1150 Balance 700 RLE: incision dressing is clean and dry, NVI, +pf/df ICD10 Worksheet Patient Problems: Problems Problem Status Onset Primary localized osteoarthritis of right hip Acute Osteoarthritis of left knee Acute
[2017-05-24 13:13] VITALS: BP 118/71; PULSE 64; RESP 16; TEMP 98.5; O2SAT 95
[2017-05-24] MEDS ORDERED: PNEUMOCOCCAL 0.5ML VACCINE VIAL IM ONE (15:39)
--- NOTE | 2017-05-25 11:05 | GOP ---
[f rep st] OPERATIVE REPORT DATE OF OPERATION: 05/23/2017 SURGEON: Rosemary Worley MD NUMERICAL CONTROL TOOL PROGRAMMER: Divina Worley PA-C. ANESTHESIA: Spinal. PREOPERATIVE DIAGNOSIS: Right hip osteoarthritis. POSTOPERATIVE DIAGNOSIS: Right hip osteoarthritis. PROCEDURE PERFORMED: Right total hip arthroplasty with x-ray. FINDINGS: INDICATIONS: The patient has progressively worsening arthritis of the hip which has failed medical m anagement. The patient understands the treatment options including continued non-operative care and has selected surgical intervention. The patient has decided to undergo total hip arthroplasty via th e direct anterior approach, understanding the risks of the procedure including, but not limited to, n eurovascular injury, infection, persistent pain, component wear and loosening, deep venous thrombosis , pulmonary embolism, limb length inequality, hip instability (including dislocation), and intra-oper ative fractures. DESCRIPTION OF PROCEDURE: After proper identification of the patient including verification and yvonne ing the surgical site, the patient was brought to the operating room and placed in the supine positio n. All bony prominences were well padded. Anesthesia was induced without complication and intraveno us prophylactic antibiotics were administered prior to skin incision. The operative leg was placed in the Trumpf Arch table extension and the well leg in a Yellofin leg ho lder. The patient was prepped and draped in the usual sterile fashion. The C-arm was draped for int ra-operative fluoroscopy to check acetabular position, femoral component position including leg lengt h and femoral offset. Attention was then drawn to surgical exposure of the hip. An incision was made with a #10 Bard Cherokee r blade starting 3 cm lateral and 3 cm distal to the anterior superior iliac spine measuring 8-10 cm and coursing distally toward the greater trochanter. The skin and subcutaneous tissues were divided sharply down to the fascia shar. The fascia shar was incised in line with the skin incision exposing the underlying tensor fascia shar muscle. The muscle was bluntly elevated from the fascia and the f irst extracapsular Cobra retractor was placed laterally at the junction of the superior femoral neck and greater trochanter. The lateral femoral circumflex vessels were identified, cauterized, and divi ded with the Aquamantys bipolar cautery. The deep investing fascia of the TFL was divided to allow p rosmery mobilization of the muscle preventing damage during the retraction. The reflected head of the rectus femoris muscle was elevated off the anterior hip capsule and a medial Cobra retractor was plac ed just proximal to the lesser trochanter. The anterior capsulotomy was made sharply from the superolateral acetabulum to the saddle junction of the superior femoral neck and greater trochanter, then coursing inferomedial towards the lesser troc hanter. The retractors were then placed in the intracapsular position for femoral neck osteotomy. C orresponding to pre-operative templating, the osteotomy was made with the oscillating saw carefully p rotecting the greater trochanter and soft tissues. The femoral head was removed from the acetabulum with a corkscrew and confirmed to be severely arthritic with exposed bone, deformity and osteophytes. Similar findings were confirmed in the acetabulum. The Arch table extension was then placed in 40 degrees external rotation. Attention was then drawn to the acetabular preparation. After placement of the anterior and posterio r Cobra retractors outside the labrum and intracapsular, the circumferential labrum was removed sharp ly. The foveal contents were then removed and hemostasis obtained with cautery. The first reamer selected was sized using the removed femoral head. Reaming began with medialization and then commenced in 2 mm increments at 45 degrees of abduction and 15 degrees of anteversion using fluoroscopic navigation. Reaming ceased 1 mm less than the definitive acetabular component and elizabeth esponded to the pre-operative templating. The final acetabular component was inserted using fluorosc opy to achieve proper orientation yielding excellent purchase and stability in the acetabulum. The f inal acetabular liner was then placed and its seating confirmed. Attention was then turned to the femur. The Arch table extension was placed in extension and adducti on, delivering the osteotomized femoral neck into the wound. A 2-pronged femoral elevator was placed at the calcar and another at the tip of the greater trochanter. The posterolateral capsule was rele ased with cautery allowing mobilization of the femur lateral and anterior for preparation. The exter nal rotators were visualized and preserved. A curette and rongeur were used to open the starting poi nt for broaching. Serial broaching started with the #0 broach and ended with the broach that exhibit ed excellent fit in the proximal femur. A change in pitch during mallet strikes was accompanied by t he inability to advance the broach any further. The trial reduction was performed and fluoroscopic n avigation was utilized to check limb length. Adjustments were made to equalize limb length according ly. After the final trials were accepted they were removed and the wound was copiously lavaged. The femo ral component was seated to the same depth as the final broach and the femoral head was impacted onto the clean trunnion. The hip was then reduced for the final time and once more fluoroscopy was used to check that limb length equality was achieved. The wound was irrigated and closed in layers, the fascia shar with 2-0 Quill, the subcutaneous tissue with 2-0 Quill, and the skin with Dermabond. Sterile dressings were applied. Final sharps and spon ge counts were accurate. The patient was then transferred to a hospital bed and brought to the [facility] room in stable condition. IMPLANTS: Accolade II size 5 at 127. Acetabular component, a 54 mm Tritanium. The liner is a Tride nt X3 36 mm. The head is a Biolox Delta 36 mm -2.5. /[id number]/MODL
--- NOTE | 2017-05-25 15:16 | ASDISCHSUM ---
Discharge Information Plan Status:Home with No Needs Medically Cleared to Leave:05/23/2017 Discharge Date:05/24/2017 04:10 PM CM D/C Disposition:Home, Routine, Self-Care ADT D/C Disposition:Home, Routine, Self-Care Projected Discharge Date:05/24/2017 12:00 AM Transportation at D/C:Family Discharge Delay Reason: Follow-Up Date:05/24/2017 12:00 AM Discharge Slot: Final Diagnosis:R TKA Placement Information Patient Contact Information Contact Name:BALJIDNER Relationship:Jose Manuel Address: Home Phone: City: [facility] [place] Phone: [facility] Code: Email: Financial Information Financial Class:[employer] [facility] Primary Plan Number:[id number] Secondary Plan Desc: Secondary Plan Number: Assessment Information CM Biomed Tech Assessment CM Note CM Note Notes: Christina is planning to discharge home with the support of her two kids. She stated that she would like home health care, but she knows that Dr. Worley will not prescribe this. Christina said that she has been having problems with her knee and she is worried this will effect her hip recovery. I encouraged her to follow up with Dr. Worleys office. If Dr. Worley agrees to home health care, Christina would like to work with [facility] through [facility]. She has worked with her in the past and really enjoyed her care. Date Signed: 05/09/2017 12:39 PM Electronically Signed By:Kimberley Olivo [facility] CM Progress Note CM Note CM Note Notes: Pt indicated she was interested in C in the [facility] pre-surgery call; today PT rec home vs. outpatient. This CM spoke w pt who indicates she will have support of her adult children caring for her and will not have [facility]. CM available for changes/needs. Date Signed: 05/23/2017 03:58 PM Electronically Signed By:XOCHITL Burnette Case Management Discharge Plan Note Case Management Discharge Discharge Order Complete? Answers: Yes Patient to Obtain Answers: via Family Medications Transportation Arranged Answers: Family/Friends Transport will Pick (Date 05/24/2017 12:00 AM & Time) Family Notified Answers: Yes Notes: Family to transport Discharge Comments Notes: Patient discharged Friday and had reported to CM that family would be able to assist her. Date Signed: 05/25/2017 03:15 PM Electronically Signed By:Destiny Green LCSW Intervention Information
== END 2017-05-24 16:10 | disposition home or self-care (01) | DRG 470 ==
LOC: F3N 06:11
PROVIDERS: ADMIT Orthopaedic Surgery; ATTEND Orthopaedic Surgery
PROC: 0SR904Z Replacement of Right Hip Joint with Ceramic on Polyethylene Synthetic Substitute, Open Approach (ICD-10-PCS; principal; 2017-05-23 08:15)
DX: M16.11 Unilateral primary osteoarthritis, right hip (principal); E66.3 Overweight; Z68.32 Body mass index [BMI] 32.0-32.9, adult
CPT/HCPCS: 97116-GP; 97161-GP; 97165-GO; G0009; J0171; J0690; J1100; J1885; J2704; J2795

== ENCOUNTER → 2018-01-15 | Outpatient (CLI) | payer OTHER | LOC: FIMAGING 19:29 | PROVIDERS: ATTEND Physician Assistant Surgical | DX: M47.26 Other spondylosis with radiculopathy, lumbar region (principal); M48.061 Spinal stenosis, lumbar region without neurogenic claudication; M43.16 Spondylolisthesis, lumbar region ==

== ENCOUNTER → 2018-01-28 | Outpatient (CLI) | payer OTHER | LOC: FIMAGING 08:50 | PROVIDERS: ATTEND Obstetrics & Gynecology Gynecology | DX: Z12.31 Encounter for screening mammogram for malignant neoplasm of breast (principal); Z80.3 Family history of malignant neoplasm of breast ==

== ENCOUNTER 2018-03-26 05:07 | Observation (INO) | payer OTHER ==
[2018-03-26] MEDS ORDERED: LR 1,000 ML IV ONE (06:05)
[2018-03-26] MEDS ORDERED: BACITRACIN ZINC 14.2 GM OINTTUBE TP ONE (06:46)
[2018-03-26] MEDS ORDERED: SURGIFLO MATRIX KIT WITH THROMBIN 8 ML TP ONE (06:46)
[2018-03-26] MEDS ORDERED: THROMBIN (BOVINE) 20,000 UNIT VIAL TP ONE (06:47)
[2018-03-26] MEDS ORDERED: CHLORHEXIDINE GLUC HIBICLENS 118 ML BTL TP ONE (06:47)
[2018-03-26] MEDS ORDERED: BACITRACIN 50,000 UNITS/10 ML SYR IRR ONE (06:48)
[2018-03-26] MEDS ORDERED: THROMBIN (BOVINE) 5,000 UNIT VIAL TP ONE ×2 (06:50→09:00)
[2018-03-26] MEDS ORDERED: morphINE SR 15 MG TAB PO ONE ×2 (06:51→07:15)
[2018-03-26] MEDS ORDERED: GABAPENTIN 300 MG CAP ONE (06:52)
[2018-03-26] MEDS ORDERED: ACETAMINOPHEN 500 MG TAB ONE (06:52)
[2018-03-26] MEDS ORDERED: CEFAZOLIN 2 GM/DEXTROSE/100 ML BAG IV ONE (06:52)
[2018-03-26] MEDS ORDERED: fentaNYL 100 MCG/2 ML INJ ONE ×3 (07:04→11:04)
[2018-03-26] MEDS ORDERED: PROPOFOL/EMULSION 500 MG/50 ML BOTTLE IV ONE ×2 (07:05→07:39)
--- NOTE | 2018-03-26 07:07 | PDHPUP ---
History & Physical Update H&P update statement: This history and physical update is based on an assessment of the patient which was completed after admission or registration (within 24 hours), but prior to the surgery/procedure. H&P update: H&P reviewed & patient examined, no change in patient's condition since H&P completed (Consents signed and site marked. All questions answered.)
[2018-03-26] MEDS ORDERED: ALBUMIN 5% 250 ML BOTTLE IV ONE (07:15)
[2018-03-26] MEDS ORDERED: ACETAMINOPHEN 500 MG TAB PO ONE (07:15)
[2018-03-26] MEDS ORDERED: GABAPENTIN 300 MG CAP PO ONE (07:15)
[2018-03-26] MEDS ORDERED: DEXMEDETOMIDINE HCL 400 MCG in NS 100 ML IV ONE (07:30)
[2018-03-26] MEDS ORDERED: ceFAZolin 2 GM/DEXTROSE 100 ML IV ONE (07:30)
[2018-03-26] MEDS ORDERED: PROMETHAZINE HCL 25 MG/ML INJ IVP PRN (07:52)
[2018-03-26] MEDS ORDERED: DEXAMETHASONE 4 MG/ML VIAL IVP PRN (07:52)
[2018-03-26] MEDS ORDERED: NALOXONE HCL 0.4 MG/ML INJ IVP PRN (07:52)
[2018-03-26] MEDS ORDERED: ONDANSETRON 4 MG/2 ML VIAL IVP PRN ×2 (07:52→09:44)
[2018-03-26] MEDS ORDERED: LR 500 ML IV PRN (07:52)
[2018-03-26] MEDS ORDERED: ALBUTEROL 3 ML DEYVIAL IH PRN (07:52)
[2018-03-26] MEDS ORDERED: METOCLOPRAMIDE 10 MG/2 ML VIAL IVP PRN (07:52)
[2018-03-26] MEDS ORDERED: DIAZEPAM 5 MG/ML 1 ML SYR IVP PRN (07:52)
--- NOTE | 2018-03-26 07:52 | PDANEPAE ---
ANE Past Medical History - Cardiovascular History Hx Hypertension: Yes Hx Arrhythmias: No Hx Chest Pain: No Hx Coronary Artery / Peripheral Vascular Disease: No Hx CHF / Valvular Disease: No Hx Palpitations: No Cardiovascular History Comment: HYPERLIPIDEMIA - Pulmonary History Hx COPD: No Hx Asthma/Reactive Airway Disease: No Hx Recent Upper Respiratory Infection: No Hx Oxygen in Use at Home: No Hx Sleep Apnea: No Sleep Apnea Screening Result - Last Documented: Negative - Neurologic History Hx Cerebrovascular Accident: No Hx Seizures: No Hx Dementia: No - Endocrine History Hx Diabetes: No - Renal History Hx Renal Disorders: No - Liver History Hx Hepatic Disorders: No - Neurological & Psychiatric Hx Hx Neurological and Psychiatric Disorders: No Neurological / Psychiatric History Comment: anxiety re:surgery - Cancer History Hx Cancer: No Cancer History Comment: melanoma abdomen 2009 - Congenital Disorder History Hx Congenital Disorders: No - GI History Hx Gastrointestinal Disorders: No - Other Health History Other Health History: osteo arthritis - Chronic Pain History Chronic Pain: Yes (r leg pain & foot pain) - Surgical History Prior Surgeries: R HIP 04/2017. L tka 2016. left knee scope. right knee acl replaced. fibroid surgery. back surgery. right foot plantar fascitis ANE Review of Systems Review of Systems: - Exercise capacity METS (RN): 5 METS ANE Patient History - Allergies Allergies/Adverse Reactions: tramadol Allergy (Verified 05/23/17 06:33) - Home Medications Home Medications: Cholecalciferol Vit D3 [Vitamin D3 (*)] 1,000 units PO DAILY 10/22/16 [Last Taken 1 Week Ago ~03/19/18] Cyanocobalamin [Vitamin B12 (*)] 1,000 mcg PO DAILY 10/22/16 [Last Taken 1 Week Ago ~03/19/18] Hydrochlorothiazide [HCTZ (*)] 25 mg PO DAILY 10/22/16 [Last Taken 03/25/18] Losartan Potassium [Cozaar] 100 mg PO DAILY 10/22/16 [Last Taken 03/25/18] Multivitamins [Multivitamin (*)] 1 each PO DAILY 10/22/16 [Last Taken 1 Week Ago ~03/19/18] Spironolactone [Aldactone 25 MG (*)] 25 mg PO BID 10/22/16 [Last Taken 03/25/18] Acetaminophen [Tylenol 325mg (*)] 650 mg PO BID 04/18/17 [Last Taken 05/22/17] - NPO status NPO Since - Liquids (Date): 03/25/18 NPO Since - Liquids (Time): 22:00 NPO Since - Solids (Date): 03/25/18 NPO Since - Solids (Time): 20:00 - Smoking Hx Smoking Status: Former smoker - Family Anes Hx Family Hx Anesthesia Complications: none ANE Labs/Vital Signs - Vital Signs Blood Pressure: 146/89 Heart Rate: 55 Respiratory Rate: 14 O2 Sat (%): 95 Height: 168.91 cm Weight: 88.451 kg ANE Physical Exam - Airway Neck exam: FROM Mallampati Score: Class 1 Mouth exam: normal dental/mouth exam - Pulmonary Pulmonary: no respiratory distress, no rales or rhonchi - Cardiovascular Cardiovascular: regular rate and rhythym, no murmur, rub, or gallop - ASA Status ASA Status: II ANE Anesthesia Plan Anesthesia Plan: general endotracheal anesthesia Specialized Airway: video laryngoscope
[2018-03-26] MEDS ORDERED: ROCURONIUM 50 MG/5 ML VIAL ONE (08:02)
[2018-03-26] MEDS ORDERED: ONDANSETRON 4 MG/2 ML VIAL ONE (08:02)
[2018-03-26] MEDS ORDERED: LIDOCAINE 2% 5 ML SDV ONE (08:02)
[2018-03-26] MEDS ORDERED: DEXAMETHASONE 4 MG/ML VIAL ONE (08:02)
[2018-03-26] MEDS ORDERED: SUGAMMADEX SODIUM 200 MG/2 ML VIAL IVP ONE (08:02)
[2018-03-26] MEDS: fentaNYL 100 MCG/2 ML INJ IVP PRN ×4 (09:40→11:05)
[2018-03-26] MEDS ORDERED: MAGNESIUM HYDROXIDE 30 ML UDCUP PO PRN (09:44)
[2018-03-26] MEDS ORDERED: BISACODYL 10 MG SUPP PR PRN (09:44)
[2018-03-26] MEDS ORDERED: POLYETHYLENE GLYCOL 3350 17 GM PKT PO PRN (09:44)
[2018-03-26] MEDS ORDERED: diphenhydrAMINE 25 MG CAP PO PRN (09:44)
[2018-03-26] MEDS ORDERED: LACTULOSE 20 GM/30 ML UDCUP PO PRN (09:44)
[2018-03-26] MEDS ORDERED: ONDANSETRON DISINTEGRATING 4 MG TAB PO PRN (09:44)
[2018-03-26] MEDS ORDERED: NS 1,000 ML IV SCH (09:45)
[2018-03-26] MEDS ORDERED: DIAZEPAM 2 MG TAB PO PRN (09:49)
--- NOTE | 2018-03-26 09:55 | POSTOPPROG ---
Post Op Note Date of Operation: 03/27/18 Surgeon: Lizandro York Vice President Of News: CHRISTINA Patel, PAC Anesthesia: GET(General Endotracheal) Pre-op Diagnosis: cervical stenosis Post-op Diagnosis: cervical stenosis Indication: cervical stenosis Procedure: ACDF C4/5, C5/6 Inf/Abcess present in the surg proc area at time of surgery?: No EBL: Minimal PA Addendum - Addendum .: S: resting comfortably, some right arm tingling O: NAD A&Ox3 MAEx4 5/5 and equal in BUE and BLE. Neck soft, supple A/p 62F s/p ACDF C4/5, C5/6 Advance diet as tolerated PT/OT/QUALITY ASSURANCE LEAD Post op xrays pending Optimize pain management Please notify NS with any change in neuro/motor exam
[2018-03-26] MEDS ORDERED: DIAZEPAM 5 MG/ML 1 ML SYR ONE (10:03)
[2018-03-26] MEDS ORDERED: oxyCODONE IR 5 MG TAB ONE (11:04)
[2018-03-26] MEDS: oxyCODONE IR 5 MG TAB PO PRN ×2 (11:09→17:31)
--- NOTE | 2018-03-26 12:06 | GOP ---
DATE OF OPERATION: 03/26/2018 SURGEON: Lizandro York MD PATIENT CARE ASSOCIATE: Ciera Patel, JOHN. ANESTHESIA: General. PREOPERATIVE DIAGNOSIS: 1. C4 through C6 cervical stenosis with radiculopathy and myelopathy. 2. Treatment refractory to nonoperative intervention surgery. POSTOPERATIVE DIAGNOSIS: 1. C4 through C6 cervical stenosis with radiculopathy and myelopathy. 2. Treatment refractory to nonoperative intervention surgery. PROCEDURE PERFORMED: 1. Anterior arthrodesis with approach to C4, C5, and C6. 2. C4-C5 diskectomy with bilateral foraminotomies, osteophytectomies and interbody fusion using a 6 mm titanium-coated PEEK cage filled with morselized autograft and allograft. 3. C5-C6 diskectomy with bilateral foraminotomies, osteophytectomies and interbody fusion using a 6 mm titanium-coated PEEK cage filled with morselized autograft and allograft. 4. Anterior cervical fusion C4, C5, and C6 with a 35 mm Medtronic [place] translational plate. 5. Use of intraoperative fluoroscopy, less than 1 hour physician time. 6. Use of neuromonitoring. 7. Use of the operative microscope. FINDINGS: per imaging SPECIMENS: None. ESTIMATED BLOOD LOSS: 20 mL. INDICATIONS: Ms. Pitts is a very pleasant woman who unfortunately was suffering from lower extremity radiculopathy, weakness, and upper extremity radiculopathy and weakness. She had evidence of severe spinal stenosis C4-C5 and C5-C6. After discussion of the risks, benefits, and treatment alternatives and after failing nonoperative management, we decided to proceed forth with surgery as described above. DESCRIPTION OF PROCEDURE: The patient was brought to the operating theater and underwent general endotracheal anesthesia without complications. She had Venodynes, SUSHIL hose, and the appropriate lines placed by Anesthesia. She was maintained supine on the operating room table with her head in slight extension. All bony processes were inspected and padded. Using lateral fluoroscopy and spinal needle, we then picked our entry point to the C4 through C6 levels. This was marked as a transverse incision on the right side of her neck. This area was then prepped and draped in the usual sterile surgical fashion. A time-out was completed per protocol, and the patient received antibiotics within 1 hour of incision. The incision was taken down initially with the scalpel blade, and then using monopolar, it was taken down to subcutaneous tissues to the level of the platysma. The platysma was over-mined in the cranial and caudal directions. A Weitlaner was placed to maintain our exposure. We opened the fibers of the platysma cranially and caudally. Using both blunt and sharp dissection, we traveled in a plane medial to the carotid sheath and lateral to the esophagus and trachea to reach the prevertebral fascia. We placed a bayonetted needle into the disk space of C4-C5 and confirmed our level using lateral fluoroscopy. We elevated the longus coli muscle from the anterior vertebral bodies of C4, C5, and C6. Deep retractors were placed to maintain our exposure, and the microscope brought into field to assist with microscopic dissection and to maintain illumination and magnification. We placed a Ulysses pin into the vertebral body of C4 and C5, and placed C4-C5 into mild distraction. We completed a C4-C5 diskectomy with bilateral foraminotomies and osteophytectomies. We prepared the cartilaginous endplates and measured the interbody space. We then placed a 6 mm titanium-coated PEEK cage filled with morselized autograft and allograft into the C4-C5 disk space. We removed the Ulysses pin from C4 and placed it into C6 and placed C5-C6 into mild distraction. We completed a C5-C6 diskectomy with bilateral foraminotomies and osteophytectomies. We prepared the cartilaginous endplates and measured interbody space. We placed a 6 mm titanium-coated PEEK cage filled with morselized autograft and allograft into the C5-6 disk space. We removed the Ulysses pins and drilled down the anterior osteophytes. We then secured a 35 mm Medtronic [place] translational plate onto the vertebral bodies of C4, C5, and C6. AP and lateral x-rays demonstrated good placement of the hardware. The wound was irrigated copiously with bacitracin irrigation. We then closed the wound in multiple layers using Vicryl sutures for the deep layers and Dermabond for the skin. The patient's wounds were dressed sterilely. She was awakened, extubated, and taken to the recovery room in stable condition. There were no complications and no noted changes on neuromonitoring throughout the procedure. The use of the PA was crucial to retracting and protecting critical structures intraoperatively. COMPLICATIONS: None. /[id number]/MODL MTDD
[2018-03-26] MEDS: ACETAMINOPHEN 500 MG TAB PO SCH ×2 (14:06→21:01)
[2018-03-26] MEDS: ceFAZolin 2 GM/DEXTROSE 100 ML IV SCH ×2 (14:06→21:02)
[2018-03-26] MEDS ORDERED: CARBOXYMETHYLCELLULOSE 0.5% 0.4 ML DROPERETTE EACHEYE PRN (18:49)
[2018-03-26] MEDS ORDERED: DIAZEPAM 5 MG TAB PO PRN (21:00)
[2018-03-26] MEDS: SPIRONOLACTONE 25 MG TAB PO SCH (21:01)
[2018-03-26] MEDS: METHOCARBAMOL 750 MG TAB PO PRN (21:01)
[2018-03-26] MEDS: FAMOTIDINE 20 MG TAB PO SCH (21:01)
[2018-03-26] MEDS: SENNOSIDES/DOCUSATE SODIUM TAB PO SCH (21:01)
[2018-03-27] MEDS: METHOCARBAMOL 750 MG TAB PO PRN (04:43)
[2018-03-27] MEDS: ACETAMINOPHEN 500 MG TAB PO SCH (05:39)
[2018-03-27] MEDS: SPIRONOLACTONE 25 MG TAB PO SCH (08:20)
[2018-03-27] MEDS: FAMOTIDINE 20 MG TAB PO SCH (08:23)
[2018-03-27] MEDS: SENNOSIDES/DOCUSATE SODIUM TAB PO SCH (08:25)
[2018-03-27] MEDS ORDERED: CHOLECALCIFEROL VIT D3 1,000 UNITS TAB PO SCH (09:00)
[2018-03-27] MEDS ORDERED: LOSARTAN POTASSIUM 50 MG TAB PO SCH (09:00)
[2018-03-27] MEDS ORDERED: HYDROCHLOROTHIAZIDE 25 MG TAB PO SCH (09:00)
[2018-03-27] MEDS ORDERED: CYANO/VITAMIN B12 1000 MCG TAB PO SCH (09:00)
[2018-03-27] MEDS ORDERED: MULTIVITAMINS 1 EACH TAB PO SCH (09:00)
--- NOTE | 2018-03-27 10:01 | SOAPPROG ---
Downtime Inpatient MD Late Entry SOAP Note: Patient feels good this morning with some minimal posterior neck pain. No arm symptoms. Will plan to dc today if continues to do well. All questions answered.
--- NOTE | 2018-03-27 10:04 | NEUSURGPN ---
Assessment/Plan: A/p 62F s/p ACDF C4/5, C5/6 Advance diet as tolerated PT/OT/JOURNEYMAN PIPE WELDER Post op xrays demonstrate intact hardware Optimize pain management Dispo planning for later today Please notify NS with any change in neuro/motor exam Subjective: Denies any new pain, numbness, tingling or weakness Objective: O: NAD A&Ox3 MAEx4 5/5 and equal in BUE and BLE. Neck soft, supple - Physician Patient Seen by DrColleen: Jaylen Neurosurgery Physical Exam - Vitals, I&O, Labs I and O 03/26/18 03/27/18 03/28/18 05:59 05:59 05:59 Intake Total 1650 200 Output Total 1010 500 Balance 640 -300 Weight 88.451 kg Intake: Oral (ml) 1350 200 IV Intake (ml) 300 Output: Urine (ml) 1000 500 Toilet 1000 500 Estimated Blood Loss (ml) 10 Other: Intake Quantity Yes Sufficient Number of Voids Toilet 1 2 Vital Signs Temp Pulse Resp BP Pulse Ox 36.6 C 70 16 125/72 H 94 03/27/18 07:51 03/27/18 07:51 03/27/18 07:51 03/27/18 07:51 03/27/18 08:44 ICD10 Worksheet Patient Problems: Problems Problem Status Onset Osteoarthritis of left knee Acute Primary localized osteoarthritis of right hip Acute
[2018-03-27] MEDS ORDERED: METHOCARBAMOL 500 MG TAB PO PRN (10:30)
[2018-03-27 11:29] VITALS: BP 120/73
--- NOTE | 2018-03-27 12:06 | ASMTLACE ---
LACE Length of stay for Answers: 2 days current admission Acuity / Level of Answers: No Care: Did the patient have an inpatient admission? Comorbidities - select Answers: Opioid dependence all that apply / Chronic pain Other Notes: HTN; HLD # of Emergency department Answers: 0 visits in the last 6 months Score: 7 Date Signed: 03/27/2018 12:05 PM Electronically Signed By:XOCHITL Burnette
--- NOTE | 2018-03-27 12:07 | ASMTCMCOM ---
CM Note CM Note Notes: Pt had planned surgery for cervical stenosis. Pt resides with adult ch. OT/PT/ROTARY DRILL OPERATOR HELPER clear pt for home. No CM d/c needs identified. Date Signed: 03/27/2018 12:07 PM Electronically Signed By:XOCHITL Burnette
[2018-03-27] MEDS: oxyCODONE IR 5 MG TAB PO PRN (13:11)
[2018-03-29] MEDS ORDERED: ENOXAPARIN 40 MG/0.4 ML SYR SC SCH (09:00)
--- NOTE | 2018-03-31 09:35 | POSTANESTH ---
Post Anesthetic Evaluation Cardiovascular Status: Normal, Stable, Similar to Pre-Op Cond Respiratory Status: Normal, Stable, Similar to Pre-op Cond. Level of Consciousness/Mental Status: Alert and Oriented Pain Control: Adequate, Prn Tx Ordered Nausea/Vomiting Control: Adequate, Prn Tx Ordered Complications Possibly Related to Anesthesia: None Noted
== END 2018-03-27 13:22 | disposition home or self-care (01) ==
LOC: FSGY 05:07 → F3E 09:44 → F3N 10:21
PROVIDERS: ADMIT Physician Assistant; ATTEND Neurological Surgery
PROC: 4A1004G Monitoring of Central Nervous Electrical Activity, Intraoperative, Open Approach (ICD-10-PCS; principal; 2018-03-26 07:15)
PROC: 0RB30ZZ Excision of Cervical Vertebral Disc, Open Approach (ICD-10-PCS; principal; 2018-03-26 07:15)
PROC: BR10YZZ Fluoroscopy of Cervical Spine using Other Contrast (ICD-10-PCS; principal; 2018-03-26 07:15)
PROC: 0RG20A0 Fusion of 2 or more Cervical Vertebral Joints with Interbody Fusion Device, Anterior Approach, Anterior Column, Open Approach (ICD-10-PCS; principal; 2018-03-26 07:15)
PROC: 00NW0ZZ Release Cervical Spinal Cord, Open Approach (ICD-10-PCS; principal; 2018-03-26 07:15)
DX: M48.02 Spinal stenosis, cervical region (principal); M50.021 Cervical disc disorder at C4-C5 level with myelopathy; M50.022 Cervical disc disorder at C5-C6 level with myelopathy; M54.12 Radiculopathy, cervical region; M48.061 Spinal stenosis, lumbar region without neurogenic claudication; R53.81 Other malaise; M54.5 Low back pain; M79.672 Pain in left foot; M25.551 Pain in right hip; I10 Essential (primary) hypertension; G43.909 Migraine, unspecified, not intractable, without status migrainosus; F41.9 Anxiety disorder, unspecified; K21.9 Gastro-esophageal reflux disease without esophagitis; M17.0 Bilateral primary osteoarthritis of knee; E78.2 Mixed hyperlipidemia; N28.9 Disorder of kidney and ureter, unspecified; Z96.641 Presence of right artificial hip joint; Z96.652 Presence of left artificial knee joint
CPT/HCPCS: 22551; 22552; 72040; 76001; 92610; 97116; 97161; 97165; G0378; C1713; J0690; J1100; J2405; J2704; J3010; J3360; P9041

== ENCOUNTER 2018-05-05 07:15 | Inpatient (IN) | payer OTHER ==
[2018-05-05] MEDS ORDERED: ACETAMINOPHEN 500 MG TAB PO ONE (08:12)
[2018-05-05] MEDS ORDERED: ceFAZolin 2 GM/DEXTROSE 100 ML IV ONE (08:12)
[2018-05-05] MEDS ORDERED: GABAPENTIN 300 MG CAP PO ONE (08:12)
[2018-05-05] MEDS ORDERED: LIDOCAINE 1% 2 ML INJ ID PRN (08:13)
[2018-05-05] MEDS ORDERED: LR 1,000 ML IV ONE (08:13)
[2018-05-05] MEDS ORDERED: THROMBIN (BOVINE) 20,000 UNIT VIAL TP ONE ×2 (08:33→09:18)
[2018-05-05] MEDS ORDERED: BUPIVACAINE/EPI 0.25% 30 ML SDV ONE ×2 (08:33→09:19)
[2018-05-05] MEDS ORDERED: BACITRACIN 50,000 UNITS/10 ML SYR IRR ONE ×2 (08:34→09:19)
[2018-05-05] MEDS ORDERED: LR 500 ML IV ONE (08:58)
[2018-05-05] MEDS ORDERED: CHLORHEXIDINE GLUC HIBICLENS 118 ML BTL TP ONE (09:18)
[2018-05-05] MEDS ORDERED: CITRATE DEXTROSE SOLN 500 ML BAG ONE (09:18)
--- NOTE | 2018-05-05 09:29 | PDHPUP ---
History & Physical Update H&P update statement: This history and physical update is based on an assessment of the patient which was completed after admission or registration (within 24 hours), but prior to the surgery/procedure. H&P update: H&P reviewed & patient examined, no change in patient's condition since H&P completed (Consents signed and site marked. All questions answered. She understands her slightly higher risk of further kidny injury with her current elevated creatinine.)
[2018-05-05] MEDS ORDERED: ALBUMIN 5% 250 ML BOTTLE IV ONE (09:49)
[2018-05-05] MEDS ORDERED: fentaNYL 100 MCG/2 ML INJ ONE (10:04)
[2018-05-05] MEDS ORDERED: PROPOFOL/EMULSION 500 MG/50 ML BOTTLE IV ONE ×2 (10:04→10:58)
--- NOTE | 2018-05-05 10:11 | PDANEPAE ---
ANE Past Medical History - Cardiovascular History Hx Hypertension: Yes Hx Arrhythmias: No Hx Chest Pain: No Hx Coronary Artery / Peripheral Vascular Disease: No Hx CHF / Valvular Disease: No Hx Palpitations: No Cardiovascular History Comment: father had htn and an aneuysm, mother had chf, brother of mi in his 40's - Pulmonary History Hx COPD: No Hx Asthma/Reactive Airway Disease: No Hx Recent Upper Respiratory Infection: No Hx Oxygen in Use at Home: No Hx Sleep Apnea: No Sleep Apnea Screening Result - Last Documented: Negative - Neurologic History Hx Cerebrovascular Accident: No Hx Seizures: No Hx Dementia: No Neurologic History Comment: periodically has right arm numbness - Endocrine History Hx Diabetes: No - Renal History Hx Renal Disorders: No - Liver History Hx Hepatic Disorders: No - Neurological & Psychiatric Hx Hx Neurological and Psychiatric Disorders: No Neurological / Psychiatric History Comment: anxiety - Cancer History Hx Cancer: No Cancer History Comment: melanoma abdomen 2010 - Congenital Disorder History Hx Congenital Disorders: No - GI History Hx Gastrointestinal Disorders: No - Other Health History Other Health History: osteo arthritis - Chronic Pain History Chronic Pain: Yes - Surgical History Prior Surgeries: tka 2017. left knee scope. right knee acl replaced. fibroid surgery. back surgery. right foot plantar fascitis ANE Review of Systems Review of Systems: - Exercise capacity METS (RN): 5 METS ANE Patient History - Allergies Allergies/Adverse Reactions: midazolam [From Versed] Allergy (Verified 04/02/18 10:13) prefers not to have tramadol Allergy (Verified 04/02/18 10:12) causes her to feel like she can't breath - Home Medications Home Medications: Cholecalciferol Vit D3 [Vitamin D3 (*)] 1,000 units PO DAILY 10/22/16 [Last Taken 1 Week Ago ~03/19/18] Cyanocobalamin [Vitamin B12 (*)] 1,000 mcg PO DAILY 10/22/16 [Last Taken 1 Week Ago ~03/19/18] Hydrochlorothiazide [HCTZ (*)] 25 mg PO DAILY 10/22/16 [Last Taken 03/25/18] Losartan Potassium [Cozaar] 100 mg PO DAILY 10/22/16 [Last Taken 03/25/18] Multivitamins [Multivitamin (*)] 1 each PO DAILY 10/22/16 [Last Taken 1 Week Ago ~03/19/18] Spironolactone [Aldactone 25 MG (*)] 25 mg PO BID 10/22/16 [Last Taken 03/25/18] Acetaminophen [Tylenol 325mg (*)] 650 mg PO BID 04/18/17 [Last Taken 03/25/18] - NPO status NPO Since - Liquids (Date): 05/04/18 NPO Since - Liquids (Time): 23:00 NPO Since - Solids (Date): 05/04/18 NPO Since - Solids (Time): 23:00 - Smoking Hx Smoking Status: Former smoker - Family Anes Hx Family Hx Anesthesia Complications: none ANE Labs/Vital Signs - Labs Result Diagrams: 05/05/18 09:25 - Vital Signs Blood Pressure: 156/92 Heart Rate: 69 Respiratory Rate: 13 O2 Sat (%): 96 Height: 168.91 cm Weight: 88.451 kg ANE Physical Exam - Airway Neck exam: FROM Mallampati Score: Class 2 Mouth exam: normal dental/mouth exam - Pulmonary Pulmonary: no respiratory distress, no rales or rhonchi, clear to auscultation - Cardiovascular Cardiovascular: regular rate and rhythym, no murmur, rub, or gallop - ASA Status ASA Status: III ANE Anesthesia Plan Anesthesia Plan: general endotracheal anesthesia Total IV Anesthesia: Yes
[2018-05-05] MEDS ORDERED: LIDOCAINE 2% 5 ML SDV ONE (10:55)
[2018-05-05] MEDS ORDERED: ROCURONIUM 50 MG/5 ML VIAL ONE (10:55)
[2018-05-05] MEDS ORDERED: ONDANSETRON 4 MG/2 ML VIAL ONE (10:55)
[2018-05-05] MEDS ORDERED: DEXAMETHASONE 4 MG/ML VIAL ONE (10:55)
[2018-05-05] MEDS ORDERED: METOCLOPRAMIDE 10 MG/2 ML VIAL ONE (10:55)
[2018-05-05] MEDS ORDERED: RANITIDINE 50 MG/2 ML VIAL ONE (10:55)
[2018-05-05] MEDS ORDERED: LR 500 ML IV PRN (11:22)
[2018-05-05] MEDS ORDERED: ONDANSETRON 4 MG/2 ML VIAL IVP PRN ×2 (11:22→17:05)
[2018-05-05] MEDS ORDERED: NALOXONE HCL 0.4 MG/ML INJ IVP PRN (11:22)
[2018-05-05] MEDS ORDERED: PROMETHAZINE HCL 25 MG/ML INJ IVP PRN (11:22)
[2018-05-05] MEDS ORDERED: fentaNYL 100 MCG/2 ML INJ IVP PRN (11:22)
[2018-05-05] MEDS ORDERED: DEXAMETHASONE 4 MG/ML VIAL IVP PRN (11:22)
[2018-05-05] MEDS ORDERED: HYDROmorphONE/DILAUDID 2 MG/ML INJ IVP PRN (11:22)
[2018-05-05] MEDS ORDERED: ALBUTEROL 3 ML DEYVIAL IH PRN (11:22)
[2018-05-05] MEDS ORDERED: morphINE PF 5 MG/10 ML INJ ONE (12:09)
[2018-05-05] MEDS ORDERED: PROPOFOL 200 MG/20 ML VIAL ONE (12:30)
[2018-05-05] MEDS ORDERED: oxyCODONE IR 5 MG TAB PO PRN (12:38)
[2018-05-05] MEDS ORDERED: CALCIUM CHLORIDE 1 GM/10 ML INJ ONE (13:43)
[2018-05-05] MEDS ORDERED: BACITRACIN ZINC 14.2 GM OINTTUBE TP ONE (14:48)
--- NOTE | 2018-05-05 16:39 | POSTANESTH ---
Post Anesthetic Evaluation Cardiovascular Status: Normal, Stable, Similar to Pre-Op Cond Respiratory Status: Normal, Stable, Similar to Pre-op Cond. Level of Consciousness/Mental Status: Mildly Sleepy, Arousable Pain Control: Adequate, Prn Tx Ordered Nausea/Vomiting Control: Adequate, Prn Tx Ordered Complications Possibly Related to Anesthesia: None Noted
[2018-05-05] MEDS ORDERED: diphenhydrAMINE 25 MG CAP PO PRN (17:05)
[2018-05-05] MEDS ORDERED: ONDANSETRON DISINTEGRATING 4 MG TAB PO PRN (17:05)
[2018-05-05] MEDS ORDERED: LACTULOSE 20 GM/30 ML UDCUP PO PRN (17:05)
[2018-05-05] MEDS ORDERED: NS 1,000 ML IV SCH (17:15)
--- NOTE | 2018-05-05 17:16 | POSTOPPROG ---
Post Op Note Date of Operation: 05/05/18 Surgeon: Lizandro York Registration Coordinator: CHRISTINA Patel Anesthesia: GET(General Endotracheal) Pre-op Diagnosis: Lumbar stenosis Post-op Diagnosis: Lumbar stenosis, durotomy Indication: Lumbar stenosis, failure of medical management Procedure: L2-L4 lamiectom/TLIF/PSF, repait of durotomy Inf/Abcess present in the surg proc area at time of surgery?: No EBL: 300cc PA Addendum - Addendum .: S: Mild headache resting comfortably O: NAD A&Ox3 MAEX4 09/27 and equal in BUE and BLE A/P 62 y/o female s/p L2-4 laminectomy/TLIF/PSF with repair of intraoperative durotomy -Optimize pain management -Advance diet as tolerated -Flat for 7 days, okay for patient to use 1-2 pillows for eating, turn from side to side and bend knees -LD to drain 15cc/hr -Bowel protocol, avodi straining x2 weeks -Post op xrays pending for once up and OOB -DVT prophx: TEDs, SCDs, Lovenox POD1, will hold 24 hour post lD pull -Please notify NS with any change in neuro/motor exam
[2018-05-05] MEDS: ceFAZolin 2 GM/DEXTROSE 100 ML IV SCH (17:30)
[2018-05-05] MEDS: ACET/CAFFEINE/BUTA FIORICET 1 EACH TAB PO PRN (17:50)
--- NOTE | 2018-05-05 17:56 | PDMN ---
Medical Necessity Medical necessity: Pt meets inpt criteria per MD order an [facility] S-820, Lumbar Fusion, 3 days, Medicare inpt only list. 62 y/o w/lumbar stenosis admitted for L2-L4 laminectomy/TLIF/PSF, repait of durotomy and post-op care.
[2018-05-05] MEDS: DIAZEPAM 5 MG TAB PO PRN (18:00)
[2018-05-05] MEDS: FAMOTIDINE 20 MG TAB PO SCH (20:44)
[2018-05-05] MEDS: SENNOSIDES/DOCUSATE SODIUM TAB PO SCH (20:44)
[2018-05-05] MEDS: SPIRONOLACTONE 25 MG TAB PO SCH (20:45)
[2018-05-05] MEDS ORDERED: SENNOSIDES/DOCUSATE SODIUM TAB PO SCH (21:00)
--- NOTE | 2018-05-05 21:31 | GOP ---
DATE OF OPERATION: 05/05/2018 SURGEON: Lizandro York MD UNCLAIMED PROPERTY OFFICER: JOHN Maldonado. PREOPERATIVE DIAGNOSIS: 1. L2 through L4 lumbar spinal stenosis with spondylosis. 2. Lateral recess foraminal stenosis. 3. Right lower extremity radiculopathy. 4. Treatment refractory to nonoperative intervention. POSTOPERATIVE DIAGNOSIS: 1. L2 through L4 lumbar spinal stenosis with spondylosis. 2. Lateral recess foraminal stenosis. 3. Right lower extremity radiculopathy. 4. Treatment refractory to nonoperative intervention. PROCEDURE PERFORMED: 1. Posterior arthrodesis with approach to L2, L3, and L4. 2. Posterolateral fusion with bilateral pedicle screw placement at L2, L3, and L4 from with a [employer] 4.75 system. 3. Posterolateral fusion on the left between L2 and L4 with morselized autograft and allograft. 4. Decompressive laminectomy with bilateral medial facetectomies L2-L3, L3-L4. 5. Right-sided L2-3 facetectomy and transforaminal lumbar interbody fusion with a 7 x 26 mm titanium coated PEEK cage filled with morselized autograft and allograft. 6. Right-sided L3-L4 facetectomy and transforaminal lumbar interbody fusion with a 6 x 26 mm titanium coated PEEK cage filled with morselized autograft and allograft. 7. Use of intraoperative 3D Stealth navigation. 8. Use of intraoperative fluoroscopy, less than 1 hour physician time. 9. Use of neuromonitoring. 10. Use of microscope. 11. Injection of preservative-free intrathecal narcotics. 12. Placement of lumbar drain. FINDINGS: inflammatory and adherent tissue SPECIMENS: None. INDICATIONS: The patient is a very pleasant 62-year-old woman who has undergone prior cervical surgery for myelopathy. She also had evidence of spondylosis and stenosis L2 through L4. After discussion of the risks, benefits , and treatment alternatives and after failing nonoperative interventions, we decided to proceed forth with surgery as described above. DESCRIPTION OF PROCEDURE: Please note that because of the inflammatory tissue, this surgery is noted to be greater than 50% more challenging than the average surgery and required more time for the dissection. The patient was brought to the operating theater and underwent general endotracheal anesthesia without complications. She had Venodynes, SUSHIL hose, and the appropriate lines placed by Anesthesia. She was flipped prone on the Mariano table, and all bony processes inspected and padded. The lower lumbar region was prepped and draped in usual sterile surgical fashion. A time-out was completed per protocol, and the patient received antibiotics within 1 hour of incision. Using lateral fluoroscopy and a spinal needle, we picked our entry point to the L2 through L4 levels. This was marked in the midline. The incision was infiltrated with Marcaine with epinephrine. The incision was taken with the scalpel blade and then using monopolar taken down the midline to the lumbar fascia, and a subperiosteal dissection carried out to the transverse processes of L2, L3, and L4. Care was taken to preserve the bilateral L1 and 2 facet joint. Deep retractors were placed to maintain our exposure, and we confirmed our level using lateral fluoroscopy. We attached the 3D Stealth navigation clamp to the spinous process of L3 and completed a 3D Stealth navigation spin. Using 3D Stealth navigation, we placed the nuclear powerplant mechanic holes for the bilateral pedicle screws in L2, L3, and L4. All holes were manually palpated with no evidence of any cortical breaches. We then tapped and placed 6.5 x 50 mm screws bilaterally into L3, L4, and left-side L2, and 5.0 x 50 mm screw into the right-sided L2 from [employer] 4.75 system. Another 3D Stealth navigation spin demonstrated good placement of the hardware. At this point, the microscope was brought into field to assist with microscopic dissection and to maintain illumination and magnification. Using a combination of the bur tip on the drill bit, Kerrison punches, and Leksell rongeur, we completed a decompressive laminectomy with bilateral mesofacetectomies, L2-L3 and L3-L4. The tissues were noted to be extremely adherent and inflamed within this region. We completed aggressive facetectomy on the right side as well between L2-L3 and L3-L4. At this point, we moved up to the L2-3 level. We distracted the interspace, and completed right-sided L2-3 foraminotomy. We tried to medialize the thecal sac, which was noted to be quite adherent ventrally to the disk space. Upon attempted retraction of the thecal sac medially, we achieved a small ventral dural tear. I was not able to find the contralateral aspect of the tear and placed a single Prolene stitch within the space to reduce the overall leak. Because I was not able to fully close the leak, I planned to place lumbar drain at the end of the case. We then retracted the thecal sac medially and completed right-sided L2-3 diskectomy. We prepared the cartilaginous endplates and measured the interbody space. We placed a 7 x 26 mm titanium coated PEEK cage filled with morselized autograft and allograft anteriorly and toward the midline. We packed additional morcellized autograft in the disk space for the interbody fusion. We let down the distraction and moved on to the L3-4 level. We distracted the interspace and completed right L3-4 diskectomy. We prepared the cartilaginous endplates and measured the interbody space. We placed 6 x 26 mm titanium coated PEEK cage filled with morselized autograft and allograft anteriorly and toward the midline. We packed additional morcellized autograft in the disk space for the interbody fusion. The tissue at the L3-4 level is also noted to be quite adherent and fibrosed. At this point, we let down distraction, decorticated bone on the left side between L2 and L4. We placed 2 lordotic rods into the heads of the screws between L2 and L4 and secured them down with cap screws which were then tightened per the training instructor's setting. The wound was irrigated copiously with bacitracin irrigation. We then placed a small layer of Surgicel and DuraSeal over the exposed thecal sac at the primary dural closure on the right side at the ventral L2-3 disc space. We placed morselized autograft and allograft on the left side between L2 and L4 for the posterolateral fusion. We then closed the wound in multiple layers, including Vicryl sutures for deep layers and a running nylon stitch for the skin. At this point, because I was not able to fully close the ventral dural tear, I placed a lumbar drain through the L4-L5 interspace. We threaded the catheter up in the intrathecal space. The lumbar drain was then secured sterilely to a drainage bag system. We confirmed that we were able to withdraw CSF. I injected preservative-free intrathecal narcotics through the lumbar drain. At this time, the patient's wounds were dressed. She was flipped supine onto the transfer cart. She was taken to recovery room in stable condition. There were no noted changes on neuromonitoring throughout the procedure. COMPLICATIONS: A small ventral dural tear was achieved at the L2-L3 disk space , secondary to inflammatory tissue. An attempt was made to close this primarily with a Prolene stitch. /[id number]/MODL MTDD
[2018-05-06] MEDS: DIAZEPAM 5 MG TAB PO PRN ×3 (01:44→23:37)
[2018-05-06] MEDS: ceFAZolin 2 GM/DEXTROSE 100 ML IV SCH (01:47)
[2018-05-06] MEDS: ACET/CAFFEINE/BUTA FIORICET 1 EACH TAB PO PRN ×2 (06:36→12:33)
[2018-05-06] MEDS: oxyCODONE IR 5 MG TAB PO PRN ×3 (08:04→20:42)
[2018-05-06] MEDS: MULTIVITAMINS 1 EACH TAB PO SCH (09:12)
[2018-05-06] MEDS: SPIRONOLACTONE 25 MG TAB PO SCH ×2 (09:12→20:42)
[2018-05-06] MEDS: SENNOSIDES/DOCUSATE SODIUM TAB PO SCH ×2 (09:12→20:42)
[2018-05-06] MEDS: FAMOTIDINE 20 MG TAB PO SCH ×2 (09:12→20:43)
[2018-05-06] MEDS: LOSARTAN POTASSIUM 50 MG TAB PO SCH ×2 (09:13→12:34)
[2018-05-06] MEDS: HYDROCHLOROTHIAZIDE 25 MG TAB PO SCH (09:13)
[2018-05-06] MEDS: ENOXAPARIN 40 MG/0.4 ML SYR SC SCH (09:17)
--- NOTE | 2018-05-06 09:40 | NEUSURGPN ---
Date of Surgery: 05/05/18 Post Op Day: 1 Assessment/Plan: Assessment: 62 y/o female s/p L2-4 laminectomy/TLIF/PSF with repair of intraoperative durotomy POD#1 Plan: -Optimize pain management -Advance diet as tolerated -Flat for 7 days (05/12), okay for patient to use 1-2 pillows for eating, turn from side to side and bend knees -LD to drain 15cc/hr -GLENN to thumbprint suction -Bowel protocol, avoid straining x2 weeks -Post op xrays pending for once up and OOB, will also get cervical xrays (she is s/p ACDF 6 wks ago) -DVT prophx: TEDs, SCDs, Lovenox POD1, will hold 24 hour post lD pull -Please notify NS with any change in neuro/motor exam Discussed patient with Dr York Subjective: Doing well, right leg pain improved Objective: AxO x4 MAEx4 5/5 BLE, BUE Sensation intact to light touch BLE GLENN not to suction-will place on thumbprint suction LD in place-patent Neuro Check Frequency: per routine Urinary Catheter in Place: Yes Urinary Catheter Indication: Other (Use Comment) (bedrest) Catheter Insertion Date: 05/05/18 - Physician Discussed Patient with : Jaylen Neurosurgery Physical Exam - Vitals, I&O, Labs I and O 05/05/18 05/06/18 05/07/18 05:59 05:59 05:59 Intake Total 2345 Output Total 2191 15 Balance 154 -15 Weight 88.451 kg Intake: Oral (ml) 1100 IV Intake (ml) 100 IV Infused (ml) 1145 Ns 1,000 ml @ 75 mls/hr 1145 IV CONT LISA Rx#: [id number] Output: Urine (ml) 1760 Catheter 1760 CSF Drainage Amount 206 15 Lumbar Drain 206 15 GLENN Drain Output (ml) 225 #1 Right Back Mariano 225 New Vital Signs Temp Pulse Resp BP Pulse Ox 36.4 C 68 14 128/67 H 100 05/05/18 21:00 05/06/18 08:00 05/06/18 08:00 05/06/18 08:00 05/06/18 08:00 Laboratory Results 05/05/18 09:25 ICD10 Worksheet Patient Problems: Problems Problem Status Onset Osteoarthritis of left knee Acute Primary localized osteoarthritis of right hip Acute
--- NOTE | 2018-05-06 11:55 | ASMTCASEMG ---
Living Arrangements What is your living Answers: Alone arrangement? Who do you live with? Type Of Residence What kind of residence do Answers: House you live in? Discharge Plan Comments Coordination Status Comments Notes: Patient is a 62yo female who was admitted for spinal surgery and currently has a lumbar drain scheduled for bed rest for the next week. OT/PT have been ordered for the patient when she is able. D/C plan TBD. CM will follow. Date Signed: 05/06/2018 11:54 AM Electronically Signed By:Brianne Irwin LCSW
[2018-05-06] MEDS: CALCIUM CARBONATE 500 MG CHEWABLE TAB PO PRN (14:11)
[2018-05-06] MEDS: METOCLOPRAMIDE 10 MG/2 ML VIAL IVP SCH ×2 (14:12→20:42)
--- NOTE | 2018-05-06 17:58 | GCON ---
PULMONARY CRITICAL CARE CONSULTATION. DATE OF CONSULTATION: 05/06/2018 HISTORY OF PRESENT ILLNESS: This patient is a 62-year-old female with a history of chronic back pain and remote laminectomy that left her with chronic right arm numbness and foot drop. She had known c ervical stenosis and underwent recent C-spine surgery without complication. She was subsequently adm itted to undergo an L2-L4 laminectomy, decompression and fusion, which was complicated by a dural tea r. This was repaired intraoperatively but she was required to lie flat for the next 7 days with an e pidural drain. Since her surgery, she has been really quite stable, feels her pain is reasonably con trolled and has a fine disposition at the moment. REVIEW OF SYSTEMS: Otherwise negative. PAST MEDICAL HISTORY: Includes hypertension, low back pain, foot drop, cervical stenosis, right arm numbness. PAST SURGICAL HISTORY: Includes cervical spine fusion, remote laminectomy, total knee arthroplasty a nd total hip arthroplasty in the past. SOCIAL HISTORY: She is a nonsmoker. FAMILY HISTORY: Noncontributory. MEDICATIONS: Include Dulcolax, Tums, Valium, Benadryl, Lovenox, Pepcid, hydrochlorothiazide, losarta n, milk of magnesia, Reglan, morphine, Zofran, oxycodone, Senokot, spironolactone, normal saline. PHYSICAL EXAM: VITAL SIGNS: She was afebrile. Blood pressure was 125/60, heart rate of 64, respira tions 12, oxygen saturation 99% on 2 L. GENERAL: She is a very pleasant woman in no apparent distress and able to speak full sentences without using accessory muscles for breathing. HEENT: Pupils equal ly round and reactive to light, nonicteric and noninjected. Mucous membranes moist without erythema or exudate. NECK: Not tender. No adenopathy. LUNGS: Breath sounds clear to auscultation bilateral ly. HEART: Regular rate and rhythm. ABDOMEN: Soft, nontender, nondistended. EXTREMITIES: No club navarro, cyanosis, or edema. OBJECTIVE DATA: Includes a creatinine from yesterday 0.9. ASSESSMENT AND PLAN: 1. Dural tear. This of course is being managed by Neurosurgery. She is going to be lying flat for the next 7 days with epidural drain in place. She seems to be tolerating this fairly well. She did complain of some reflux and asked for Tums, which I did give her. 2. Chronic constipation. We will put her on a bowel protocol and see if we can get her bowels movjose g. 3. Hypertension. She seems to be pretty normotensive at the moment using a regular regimen. Will j ust watch that closely. /[id number]/MODL
[2018-05-07] MEDS: METOCLOPRAMIDE 10 MG/2 ML VIAL IVP SCH ×5 (02:32→20:39)
[2018-05-07] MEDS: oxyCODONE IR 5 MG TAB PO PRN ×3 (02:35→19:26)
--- NOTE | 2018-05-07 08:07 | NEUSURGPN ---
Date of Surgery: 05/05/18 Post Op Day: 2 Assessment/Plan: Assessment: 62 y/o female s/p L2-4 laminectomy/TLIF/PSF with repair of intraoperative durotomy POD#2 Plan: -Optimize pain management -Advance diet as tolerated -Flat for 7 days (05/12), okay for patient to use 1-2 pillows for eating, turn from side to side and bend knees -LD to drain 15cc/hr -GLENN to no suction today, anticipate removing tomorrow (Friday) -Bowel protocol, avoid straining x2 weeks -Post op xrays pending for once up and OOB, will also get cervical xrays (she is s/p ACDF 6 wks ago)-ordered for 05/12/18 -DVT prophx: TEDs, SCDs, Lovenox POD#1, will hold 24 hour post LD pull -Please notify NS with any change in neuro/motor exam Discussed patient with Dr York Subjective: back pain with positioning Objective: AxO x4 MAEx4 5/5 BLE, BUE Sensation intact to light touch BLE GLENN patent-not to suction LD in place-patent Neuro Check Frequency: per routine Urinary Catheter in Place: Yes Urinary Catheter Indication: Other (Use Comment) (bedrest) Catheter Insertion Date: 05/05/18 - Physician Discussed Patient with : Jaylen Neurosurgery Physical Exam - Vitals, I&O, Labs I and O 05/06/18 05/07/18 05/08/18 05:59 05:59 05:59 Intake Total 2345 3308 Output Total 2191 2700 30 Balance 154 608 -30 Weight 88.451 kg Intake: Oral (ml) 1100 2250 IV Intake (ml) 100 200 IV Infused (ml) 1145 858 Ns 1,000 ml @ 75 mls/hr 1145 858 IV CONT LISA Rx#: [id number] Output: Urine (ml) 1760 2200 Catheter 1760 2200 CSF Drainage Amount 206 360 30 Lumbar Drain 206 360 30 GLENN Drain Output (ml) 225 140 #1 Right Back Mariano 225 140 New Vital Signs Temp Pulse Resp BP Pulse Ox 37.1 C 70 15 115/66 96 05/06/18 22:00 05/07/18 07:00 05/07/18 07:00 05/07/18 07:00 05/07/18 07:00 Laboratory Results 05/05/18 09:25 ICD10 Worksheet Patient Problems: Problems Problem Status Onset Osteoarthritis of left knee Acute Primary localized osteoarthritis of right hip Acute
[2018-05-07] MEDS: ACET/CAFFEINE/BUTA FIORICET 1 EACH TAB PO PRN (08:46)
[2018-05-07] MEDS: HYDROCHLOROTHIAZIDE 25 MG TAB PO SCH (08:47)
[2018-05-07] MEDS: ENOXAPARIN 40 MG/0.4 ML SYR SC SCH (08:47)
[2018-05-07] MEDS: MULTIVITAMINS 1 EACH TAB PO SCH (08:48)
[2018-05-07] MEDS: LOSARTAN POTASSIUM 50 MG TAB PO SCH (08:48)
[2018-05-07] MEDS: SENNOSIDES/DOCUSATE SODIUM TAB PO SCH ×2 (08:48→20:40)
[2018-05-07] MEDS: SPIRONOLACTONE 25 MG TAB PO SCH ×2 (08:48→21:29)
[2018-05-07] MEDS: FAMOTIDINE 20 MG TAB PO SCH ×2 (08:48→21:29)
[2018-05-07] MEDS: MAGNESIUM HYDROXIDE 30 ML UDCUP PO PRN (09:58)
[2018-05-07] MEDS: METHOCARBAMOL 750 MG TAB PO SCH ×3 (12:33→21:29)
[2018-05-07] MEDS: BISACODYL 10 MG SUPP PR PRN (14:12)
[2018-05-07] MEDS ORDERED: METHOCARBAMOL 750 MG TAB PO SCH (16:00)
--- NOTE | 2018-05-07 17:35 | PDINTPN ---
[facility] Progress Note Assessment/Plan: 62 F with chronic back pain and remote laminectomy resulting in mild foot drop. She underwent cervical fusion recently without complication and proceeded with lumbar surgery this admit which was complicated by a dural tear requiring durotomy. She has been stable since but requires supine positioning and lumbar drain for 7 days per neurosurgery. * Dural tear/CSF leak- stable on day#2 of 7 supine and lumbar drain. plans per NS * HTN- controlled * GERD- complained of minor gerd symptoms so started scheduled pepcid. * chronic constipation in bowel protocol Subjective: no events Objective: Vital Signs Temp Pulse Resp BP Pulse Ox 37.1 C 66 17 109/56 L 95 05/06/18 22:00 05/07/18 16:00 05/07/18 16:00 05/07/18 16:00 05/07/18 16:00 Laboratory Results 05/05/18 09:25 05/06/18 05/07/18 05/08/18 05:59 05:59 05:59 Intake Total 2345 3308 Output Total 2191 2700 1040 Balance 154 608 -1040 Physical Exam - Physical Exam General Appearance: WD/WN, alert, no apparent distress EENT: PERRL/EOMI, No scleral icterus (R), No scleral icterus (L) Neck: supple Respiratory: lungs clear, normal breath sounds, decreased breath sounds, No respiratory distress, No accessory muscle use Cardiac/Chest: regular rate, rhythm, No edema Abdomen: non-tender, soft, No distended Skin: normal color, warm/dry, No cyanosis Lymphatic: no adenopathy Extremities: No pedal edema Neuro/Psych: alert, normal mood/affect, oriented x 3 ICD10 Worksheet Patient Problems: Problems Problem Status Onset Osteoarthritis of left knee Acute Primary localized osteoarthritis of right hip Acute
[2018-05-07] MEDS: CALCIUM CARBONATE 500 MG CHEWABLE TAB PO PRN (21:29)
[2018-05-08] MEDS: oxyCODONE IR 5 MG TAB PO PRN ×5 (01:16→22:57)
[2018-05-08] MEDS: METOCLOPRAMIDE 10 MG/2 ML VIAL IVP SCH ×4 (01:18→20:27)
[2018-05-08] MEDS: ACET/CAFFEINE/BUTA FIORICET 1 EACH TAB PO PRN (03:15)
--- NOTE | 2018-05-08 05:31 | NEUSURGPN ---
Assessment/Plan: DRAFT!! Catheter Insertion Date: 05/05/18 Neurosurgery Physical Exam - Vitals, I&O, Labs I and O 05/06/18 05/07/18 05/08/18 05:59 05:59 05:59 Intake Total 2345 3308 Output Total 2191 2700 1690 Balance 154 608 -1690 Weight 88.451 kg Intake: Oral (ml) 1100 2250 IV Intake (ml) 100 200 IV Infused (ml) 1145 858 Ns 1,000 ml @ 75 mls/hr 1145 858 IV CONT LISA Rx#: [id number] Output: Urine (ml) 1760 2200 1325 Catheter 1760 2200 1325 CSF Drainage Amount 206 360 345 Lumbar Drain 206 360 345 GLENN Drain Output (ml) 225 140 20 #1 Right Back Mariano 225 140 20 New Other: Number of Stools Catheter 1 Vital Signs Temp Pulse Resp BP Pulse Ox 36.8 C 66 14 118/50 L 95 05/07/18 19:00 05/08/18 04:00 05/08/18 04:00 05/08/18 03:00 05/08/18 04:00 Laboratory Results 05/05/18 09:25 ICD10 Worksheet Patient Problems: Problems Problem Status Onset Osteoarthritis of left knee Acute Primary localized osteoarthritis of right hip Acute
--- NOTE | 2018-05-08 05:33 | NEUSURGPN ---
Assessment/Plan: Assessment: 62 y/o female s/p L2-4 laminectomy/TLIF/PSF with repair of intraoperative durotomy POD#3 Plan: -Optimize pain management -Flat for 7 days (05/12), okay for patient to use 1-2 pillows for eating, turn from side to side and bend knees -LD to drain 15cc/hr -GLENN drain-continue on suction today -Bowel protocol, avoid straining x2 weeks -Post op xrays pending for once up and OOB, will also get cervical xrays (she is s/p ACDF 6 wks ago)-ordered for 05/12/18 -DVT prophx: TEDs, SCDs, Lovenox POD#1, will hold 24 hour post LD pull -Please notify NS with any change in neuro/motor exam Seen with Dr York Subjective: back pain with positioning, some left leg pain. Objective: AxO x4 MAEx4 5/5 BLE, BUE Incision clean, flat dry Sensation intact to Catheter Insertion Date: 05/05/18 - Physician Patient Seen by Dr.: York Neurosurgery Physical Exam - Vitals, I&O, Labs I and O 05/06/18 05/07/18 05/08/18 05:59 05:59 05:59 Intake Total 2345 3308 Output Total 2191 2700 1690 Balance 154 608 -1690 Weight 88.451 kg Intake: Oral (ml) 1100 2250 IV Intake (ml) 100 200 IV Infused (ml) 1145 858 Ns 1,000 ml @ 75 mls/hr 1145 858 IV CONT LISA Rx#: [id number] Output: Urine (ml) 1760 2200 1325 Catheter 1760 2200 1325 CSF Drainage Amount 206 360 345 Lumbar Drain 206 360 345 GLENN Drain Output (ml) 225 140 20 #1 Right Back Mariano 225 140 20 New Other: Number of Stools Catheter 1 Vital Signs Temp Pulse Resp BP Pulse Ox 36.8 C 66 14 118/50 L 95 05/07/18 19:00 05/08/18 04:00 05/08/18 04:00 05/08/18 03:00 05/08/18 04:00 Laboratory Results 05/05/18 09:25 ICD10 Worksheet Patient Problems: Problems Problem Status Onset Osteoarthritis of left knee Acute Primary localized osteoarthritis of right hip Acute
[2018-05-08 08:15] LABS: PLATELET COUNT 176 10^3/uL (150-400)
[2018-05-08] MEDS: LOSARTAN POTASSIUM 50 MG TAB PO SCH (09:44)
[2018-05-08] MEDS: METHOCARBAMOL 750 MG TAB PO SCH ×3 (09:44→20:27)
[2018-05-08] MEDS: GABAPENTIN 100 MG CAP PO SCH ×3 (09:44→20:27)
[2018-05-08] MEDS: HYDROCHLOROTHIAZIDE 25 MG TAB PO SCH (09:44)
[2018-05-08] MEDS: FAMOTIDINE 20 MG TAB PO SCH ×2 (09:44→20:26)
[2018-05-08] MEDS: SPIRONOLACTONE 25 MG TAB PO SCH ×2 (09:45→20:27)
[2018-05-08] MEDS: MULTIVITAMINS 1 EACH TAB PO SCH (09:45)
[2018-05-08] MEDS: ENOXAPARIN 40 MG/0.4 ML SYR SC SCH ×2 (09:45→09:52)
[2018-05-08] MEDS: SENNOSIDES/DOCUSATE SODIUM TAB PO SCH ×2 (09:45→20:26)
--- NOTE | 2018-05-08 13:08 | PDINTPN ---
Start Up Specialist Progress Note Assessment/Plan: 62 F with chronic back pain and remote laminectomy resulting in mild foot drop. She underwent cervical fusion recently without complication and proceeded with lumbar surgery this admit which was complicated by a dural tear requiring durotomy. She has been stable since but requires supine positioning and lumbar drain for 7 days per neurosurgery. * Dural tear/CSF leak- stable on day#3 of 7 supine and lumbar drain/GLENN. plans per NS * HTN- controlled * GERD- complained of minor gerd symptoms so started scheduled pepcid. added simethicone * chronic constipation in bowel protocol 05/08/18 13:07 Subjective: no events. Pain manageable, but ongoing issues of GERD- asked for simethicone. Objective: Vital Signs Temp Pulse Resp BP Pulse Ox 37 C 71 16 99/57 L 97 05/08/18 09:00 05/08/18 11:00 05/08/18 11:00 05/08/18 11:00 05/08/18 11:00 Laboratory Results 05/08/18 08:00 05/08/18 08:00 05/07/18 05/08/18 05/09/18 05:59 05:59 05:59 Intake Total 3308 750 Output Total 2700 2725 85 Balance 608 -1975 -85 Physical Exam - Physical Exam General Appearance: WD/WN, alert, no apparent distress EENT: PERRL/EOMI, No scleral icterus (R), No scleral icterus (L) Neck: supple Respiratory: lungs clear, normal breath sounds, No respiratory distress, No accessory muscle use Cardiac/Chest: normal peripheral pulses, regular rate, rhythm, edema Abdomen: non-tender, soft, No distended Skin: normal color, warm/dry, No cyanosis Lymphatic: no adenopathy Extremities: No pedal edema Neuro/Psych: alert, normal mood/affect, oriented x 3, 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
--- NOTE | 2018-05-08 16:19 | ASMTCMCOM ---
CM Note CM Note Notes: Patient remains on bed rest. Therapies will eval when patient is able to participate. CM will follow. Date Signed: 05/08/2018 04:19 PM Electronically Signed By:Brianne Irwin LCSW
[2018-05-08] MEDS: DIAZEPAM 5 MG TAB PO PRN (21:10)
[2018-05-09] MEDS: METOCLOPRAMIDE 10 MG/2 ML VIAL IVP SCH ×4 (02:04→20:01)
[2018-05-09] MEDS: oxyCODONE IR 5 MG TAB PO PRN ×4 (03:56→20:00)
[2018-05-09] MEDS: DIAZEPAM 5 MG TAB PO PRN ×2 (03:57→21:02)
[2018-05-09] MEDS: METHOCARBAMOL 750 MG TAB PO SCH ×3 (07:51→22:31)
[2018-05-09] MEDS: HYDROCHLOROTHIAZIDE 25 MG TAB PO SCH (07:51)
[2018-05-09] MEDS: FAMOTIDINE 20 MG TAB PO SCH ×2 (07:51→20:01)
[2018-05-09] MEDS: LOSARTAN POTASSIUM 50 MG TAB PO SCH (07:51)
[2018-05-09] MEDS: ENOXAPARIN 40 MG/0.4 ML SYR SC SCH (07:52)
[2018-05-09] MEDS: SPIRONOLACTONE 25 MG TAB PO SCH ×2 (07:52→20:01)
[2018-05-09] MEDS: SENNOSIDES/DOCUSATE SODIUM TAB PO SCH ×2 (07:52→20:01)
[2018-05-09] MEDS: GABAPENTIN 100 MG CAP PO SCH ×3 (07:52→19:20)
[2018-05-09] MEDS: MULTIVITAMINS 1 EACH TAB PO SCH (07:52)
--- NOTE | 2018-05-09 09:34 | NEUSURGPN ---
Date of Surgery: 05/05/18 Post Op Day: 4 Assessment/Plan: Assessment: 62 y/o female s/p L2-4 laminectomy/TLIF/PSF with repair of intraoperative durotomy POD#4 Plan: -Optimize pain management -Flat for 7 days (05/12), okay for patient to use 1-2 pillows for eating, turn from side to side and bend knees -LD to drain 15cc/hr -GLENN drain-zero output overnight, will remove today -Bowel protocol, avoid straining x2 weeks -Post op xrays pending for once up and OOB, will also get cervical xrays (she is s/p ACDF 6 wks ago)-ordered for 05/12/18 -Will anticipate clamping LD on Friday -DVT prophx: TEDs, SCDs, Lovenox POD#1, will hold 24 hour post LD pull -PT/OT-extremity exercises with HOB flat if able -Please notify NS with any change in neuro/motor exam Discussed patient with Dr York Subjective: No new events, patient reports sore hips Objective: AxO x4 PERRLA MAEx4 5/5 BUE, BLE Dressing CDI Lumbar drain patent GLENN in place-no output Neuro Check Frequency: per routine Urinary Catheter in Place: Yes Urinary Catheter Indication: Other (Use Comment) (bedrest) Catheter Insertion Date: 05/05/18 - Physician Discussed Patient with : Jaylen Neurosurgery Physical Exam - Vitals, I&O, Labs I and O 05/08/18 05/09/18 05/10/18 05:59 05:59 05:59 Intake Total 750 2300 Output Total 9195 2763 45 Balance -1974 -463 -45 Intake: Oral (ml) 750 2300 IV Intake (ml) 0 Output: Urine (ml) 2325 2450 Catheter 2325 2450 CSF Drainage Amount 360 310 45 Lumbar Drain 360 310 45 GLENN Drain Output (ml) 40 3 #1 Right Back Mariano 40 3 New Other: Number of Stools Catheter 0 0 Vital Signs Temp Pulse Resp BP Pulse Ox 36.8 C 77 17 99/47 L 94 05/09/18 04:00 05/09/18 08:00 05/09/18 08:00 05/09/18 08:00 05/09/18 08:00 Laboratory Results 05/08/18 08:05/08/18 08:00 ICD10 Worksheet Patient Problems: Problems Problem Status Onset Osteoarthritis of left knee Acute Primary localized osteoarthritis of right hip Acute
--- NOTE | 2018-05-09 12:22 | PDINTPN ---
Geoscience Technician Progress Note Assessment/Plan: 62 F with chronic back pain and remote laminectomy resulting in mild foot drop. She underwent cervical fusion recently without complication and proceeded with lumbar surgery this admit which was complicated by a dural tear requiring durotomy. She has been stable since but requires supine positioning and lumbar drain for 7 days per neurosurgery. * Dural tear/CSF leak- stable on day#4 of 7 supine and lumbar drain/GLENN. plans per NS * HTN- controlled * GERD- complained of minor gerd symptoms so started scheduled pepcid. added simethicone * chronic constipation in bowel protocol 05/08/18 13:07 05/09/18 12:22 Subjective: no events Objective: Vital Signs Temp Pulse Resp BP Pulse Ox 36.8 C 77 17 99/47 L 94 05/09/18 04:00 05/09/18 08:00 05/09/18 08:00 05/09/18 08:00 05/09/18 08:00 Laboratory Results 05/08/18 08:00 05/08/18 08:00 05/08/18 05/09/18 05/10/18 05:59 05:59 05:59 Intake Total 750 2300 Output Total 9928 2763 45 Balance -1975 -463 -45 Physical Exam - Physical Exam General Appearance: WD/WN, alert, no apparent distress EENT: PERRL/EOMI, No scleral icterus (R), No scleral icterus (L) Neck: supple Respiratory: lungs clear, normal breath sounds, decreased breath sounds, No respiratory distress, No accessory muscle use Cardiac/Chest: regular rate, rhythm, No edema Abdomen: non-tender, soft, No distended Skin: normal color, warm/dry, No cyanosis Lymphatic: no adenopathy Extremities: No pedal edema Neuro/Psych: alert, normal mood/affect, oriented x 3 ICD10 Worksheet Patient Problems: Problems Problem Status Onset Osteoarthritis of left knee Acute Primary localized osteoarthritis of right hip Acute
[2018-05-09] MEDS: SIMETHICONE 80 MG TAB CHEW PO PRN (17:29)
[2018-05-09] MEDS: BISACODYL 10 MG SUPP PR PRN (20:01)
[2018-05-09] MEDS: POLYETHYLENE GLYCOL 3350 17 GM PKT PO PRN (20:12)
[2018-05-09] MEDS ORDERED: GABAPENTIN 300 MG CAP PO ONE (21:00)
[2018-05-09] MEDS: CALCIUM CARBONATE 500 MG CHEWABLE TAB PO PRN (22:32)
[2018-05-10] MEDS: oxyCODONE IR 5 MG TAB PO PRN ×5 (00:03→21:55)
[2018-05-10] MEDS: METOCLOPRAMIDE 10 MG/2 ML VIAL IVP SCH ×4 (02:19→20:23)
[2018-05-10] MEDS: DIAZEPAM 5 MG TAB PO PRN ×3 (04:18→18:24)
[2018-05-10] MEDS: ACET/CAFFEINE/BUTA FIORICET 1 EACH TAB PO PRN (05:37)
--- NOTE | 2018-05-10 07:21 | NEUSURGPN ---
Date of Surgery: 05/05/18 Post Op Day: 5 Assessment/Plan: Assessment: 62 y/o female s/p L2-4 laminectomy/TLIF/PSF with repair of intraoperative durotomy POD#5 Plan: -Optimize pain management -Flat for 7 days (05/12), okay for patient to use 1-2 pillows for eating, turn from side to side and bend knees -LD to drain 15cc/hr -GLENN removed yesterday -Some increasing leg pain which could be related to prolonged bedrest, increased HS gabapentin dose last night which was helpful -Bowel protocol, avoid straining x2 weeks -Post op xrays pending for once up and OOB, will also get cervical xrays (she is s/p ACDF 6 wks ago)-ordered for 05/12/18 -Will clamp LD tomorrow at 0500 and raise HOB 10 degrees/hr -Hold Lovenox tomorrow in anticipation of LD removal Friday -DVT prophx: TEDs, SCDs, Lovenox POD#1, will hold 24 hour post LD pull -PT/OT-extremity exercises with HOB flat if able -Please notify NS with any change in neuro/motor exam Discussed patient with Dr York Subjective: No new events Objective: AxO x4 PERRLA CAPONE x4 5/5 BUE, BLE Sensation intact to light touch BLE Dressing/incision CDI LD patent-draining clear fluid Neuro Check Frequency: per routine Urinary Catheter in Place: Yes Urinary Catheter Indication: Other (Use Comment) (bed rest) Catheter Insertion Date: 05/05/18 - Physician Discussed Patient with : Jaylen Neurosurgery Physical Exam - Vitals, I&O, Labs I and O 05/09/18 05/10/18 05/11/18 05:59 05:59 05:59 Intake Total 2302049 Output Total 5405 7887 15 Balance -463 -478 -15 Intake: Oral (ml) 2300 2049 Output: Urine (ml) 2450 2200 Catheter 2450 2200 CSF Drainage Amount 310 328 15 Lumbar Drain 310 328 15 GLENN Drain Output (ml) 3 #1 Right Back Mariano 3 New Other: Number of Stools Catheter 0 Vital Signs Temp Pulse Resp BP Pulse Ox 37.1 C 65 17 91/38 L 96 05/09/18 20:00 05/10/18 04:00 05/10/18 04:00 05/10/18 04:00 05/10/18 04:00 Laboratory Results 05/08/18 08:00 05/08/18 08:00 ICD10 Worksheet Patient Problems: Problems Problem Status Onset Osteoarthritis of left knee Acute Primary localized osteoarthritis of right hip Acute
[2018-05-10] MEDS: MULTIVITAMINS 1 EACH TAB PO SCH (08:08)
[2018-05-10] MEDS: GABAPENTIN 100 MG CAP PO SCH ×3 (08:09→20:35)
[2018-05-10] MEDS: FAMOTIDINE 20 MG TAB PO SCH ×2 (08:09→20:23)
[2018-05-10] MEDS: METHOCARBAMOL 750 MG TAB PO SCH ×3 (08:09→21:55)
[2018-05-10] MEDS: ENOXAPARIN 40 MG/0.4 ML SYR SC SCH (08:10)
[2018-05-10] MEDS: HYDROCHLOROTHIAZIDE 25 MG TAB PO SCH (09:49)
[2018-05-10] MEDS: LOSARTAN POTASSIUM 50 MG TAB PO SCH (09:49)
[2018-05-10] MEDS: SPIRONOLACTONE 25 MG TAB PO SCH ×2 (09:58→20:23)
[2018-05-10] MEDS: SENNOSIDES/DOCUSATE SODIUM TAB PO SCH ×2 (09:58→20:23)
[2018-05-10] MEDS ORDERED: CALCIUM CARBONATE 500 MG CHEWABLE TAB PO PRN (11:42)
[2018-05-10] MEDS: MAGNESIUM HYDROXIDE 30 ML UDCUP PO PRN (14:14)
--- NOTE | 2018-05-10 14:42 | PDINTPN ---
Credit Support Specialist Progress Note Assessment/Plan: 62 F with chronic back pain and remote laminectomy resulting in mild foot drop. She underwent cervical fusion recently without complication and proceeded with lumbar surgery this admit which was complicated by a dural tear requiring durotomy. She has been stable since but requires supine positioning and lumbar drain for 7 days per neurosurgery. * Dural tear/CSF leak- stable on day#5 of 7 supine and lumbar drain/GLENN. plans per NS include clamp LD 05/11 with dc 05/12. GLENN dc'd 05/09 * HTN- controlled * GERD- complained of minor gerd symptoms so started scheduled pepcid. added simethicone, prn tums. * chronic constipation in bowel protocol. OK to change reglan to PO from IV Subjective: no events. Pain mostly controlled. Objective: Vital Signs Temp Pulse Resp BP Pulse Ox 36.6 C 58 L 13 102/57 L 93 05/10/18 12:00 05/10/18 12:00 05/10/18 12:00 05/10/18 12:00 05/10/18 12:00 Laboratory Results 05/08/18 08:00 05/08/18 08:00 05/09/18 05/10/18 05/11/18 05:59 05:59 05:59 Intake Total 2300 2050 Output Total 3977 2196 121 Banner -463 -478 -121 Physical Exam - Physical Exam General Appearance: WD/WN, alert, no apparent distress EENT: PERRL/EOMI, No scleral icterus (R), No scleral icterus (L) Neck: supple Respiratory: lungs clear, normal breath sounds, No respiratory distress, No accessory muscle use Cardiac/Chest: regular rate, rhythm, No edema Abdomen: non-tender, soft, No distended Skin: normal color, warm/dry, No cyanosis Lymphatic: no adenopathy Extremities: No pedal edema Neuro/Psych: alert, normal mood/affect, oriented x 3 ICD10 Worksheet Patient Problems: Problems Problem Status Onset Osteoarthritis of left knee Acute Primary localized osteoarthritis of right hip Acute
[2018-05-10] MEDS: SIMETHICONE 80 MG TAB CHEW PO PRN (15:19)
[2018-05-10] MEDS: BISACODYL 10 MG SUPP PR PRN (17:02)
[2018-05-10] MEDS ORDERED: GABAPENTIN 300 MG CAP PO ONE (21:00)
[2018-05-11] MEDS: DIAZEPAM 5 MG TAB PO PRN ×2 (00:22→05:57)
[2018-05-11] MEDS: METOCLOPRAMIDE 10 MG/2 ML VIAL IVP SCH ×2 (02:14→08:13)
[2018-05-11] MEDS: oxyCODONE IR 5 MG TAB PO PRN ×3 (06:57→22:38)
[2018-05-11] MEDS ORDERED: GABAPENTIN 100 MG CAP ONE (07:50)
[2018-05-11] MEDS: GABAPENTIN 100 MG CAP PO SCH ×3 (07:59→21:50)
[2018-05-11] MEDS ORDERED: GABAPENTIN 100 MG CAP PO ONE (08:00)
[2018-05-11] MEDS ORDERED: GABAPENTIN 300 MG CAP PO ONE (08:00)
--- NOTE | 2018-05-11 08:06 | NEUSURGPN ---
Assessment/Plan: Assessment: 62 y/o female s/p L2-4 laminectomy/TLIF/PSF with repair of intraoperative durotomy Plan: -Optimize pain management. Extra dose of gabapentin given this morning. Discussed side effects (increased blurry vision). Lidoderm patches Added -Slowly increasing HOB 5 degrees every 30 minutes. -Bowel protocol, avoid straining x2 weeks -Post op xrays pending for once up and OOB, will also get cervical xrays (she is s/p ACDF 6 wks ago)-ordered for 05/12/18 -DVT prophx: TEDs, SCDs, HOLD LOVENOX -Please notify NS with any change in neuro/motor exam Seen with Dr York Subjective: Some blurry vision. bilateral leg pain Objective: NAD A&Ox3 CAPONE 5/5 and equal in BUE and BLE. Incision c/d/i Catheter Insertion Date: 05/05/18 - Physician Patient Seen by : Jaylen Neurosurgery Physical Exam - Vitals, I&O, Labs I and O 05/10/18 05/11/18 05/12/18 05:59 05:59 05:59 Intake Total 2050 3050 Output Total 2528 3850 Balance -478 -800 Intake: Oral (ml) 2050 3050 Output: Urine (ml) 2200 3500 Catheter 2200 3500 CSF Drainage Amount 328 350 Lumbar Drain 328 350 Other: Number of Stools Catheter 1 Vital Signs Temp Pulse Resp BP Pulse Ox 37.5 C 56 L 13 103/50 L 100 05/11/18 00:00 05/11/18 04:00 05/11/18 04:00 05/11/18 04:59 05/11/18 06:00 Laboratory Results 05/08/18 08:00 05/08/18 08:00 ICD10 Worksheet Patient Problems: Problems Problem Status Onset Osteoarthritis of left knee Acute Primary localized osteoarthritis of right hip Acute
[2018-05-11] MEDS: METHOCARBAMOL 750 MG TAB PO SCH ×3 (08:14→21:50)
[2018-05-11] MEDS: LIDOCAINE 4%/MENTHOL 1% PATCH TD SCH (08:15)
[2018-05-11] MEDS: FAMOTIDINE 20 MG TAB PO SCH ×2 (09:43→21:50)
[2018-05-11] MEDS: SENNOSIDES/DOCUSATE SODIUM TAB PO SCH ×2 (09:43→21:50)
[2018-05-11] MEDS: MULTIVITAMINS 1 EACH TAB PO SCH (09:43)
[2018-05-11] MEDS: LOSARTAN POTASSIUM 50 MG TAB PO SCH (10:06)
[2018-05-11] MEDS: SPIRONOLACTONE 25 MG TAB PO SCH ×2 (10:07→21:50)
[2018-05-11] MEDS: HYDROCHLOROTHIAZIDE 25 MG TAB PO SCH (10:07)
--- NOTE | 2018-05-11 10:42 | PDINTPN ---
Scientific Manager Progress Note Assessment/Plan: Assessment/Plan: 62 F with chronic back pain and remote laminectomy resulting in mild foot drop. She underwent cervical fusion recently without complication and proceeded with lumbar surgery this admit which was complicated by a dural tear requiring durotomy. She has been stable since but requires supine positioning and lumbar drain for 7 days per neurosurgery. * Dural tear/CSF leak- stable on day#5 of 7 supine and lumbar drain/GLENN. plans per NS include clamp LD 05/11 with dc 05/12. GLENN dc'd 05/09 -per Neurosurgery * HTN- controlled * GERD- complained of minor gerd symptoms so started scheduled pepcid. added simethicone, prn tums. * chronic constipation in bowel protocol. OK to change reglan to PO from IV * Pain-worsened with elevation of head of bed * VT prophylaxis * Stress ulcer prophylaxis Subjective: Resting comfortably in bed. Complains of some low back pain. Still with constipation issues. Objective: Vital Signs Temp Pulse Resp BP Pulse Ox 36.7 C 64 11 L 121/68 H 95 05/11/18 08:00 05/11/18 10:00 05/11/18 10:00 05/11/18 10:00 05/11/18 10:00 Laboratory Results 05/08/18 08:00 05/08/18 08:00 05/10/18 05/11/18 05/12/18 05:59 05:59 05:59 Intake Total 0 3050 Output Total 2528 3850 Balance -478 -800 - Time Spent With Patient Time Spent With Patient: 35 min of time spent with patient, over 1/2 involved with coordination of care or counseling. Case discussed with nursing Physical Exam - Physical Exam General Appearance: WD/WN, alert, mild distress EENT: PERRL/EOMI Neck: non-tender, full range of motion Respiratory: chest non-tender, lungs clear, normal breath sounds Cardiac/Chest: normal peripheral pulses, regular rate, rhythm Peripheral Pulses: 2+: carotid (R), carotid (L), femoral (R), femoral (L), dorsalis-pedis (R), dorsalis-pedis (L) Abdomen: normal bowel sounds, non-tender, soft Pelvic Exam: deferred Rectal: deferred Skin: normal color, warm/dry Extremities: non-tender Neuro/Psych: alert, oriented x 3 ICD10 Worksheet Patient Problems: Problems Problem Status Onset Osteoarthritis of left knee Acute Primary localized osteoarthritis of right hip Acute
[2018-05-11] MEDS: POLYETHYLENE GLYCOL 3350 17 GM PKT PO PRN (11:32)
[2018-05-11] MEDS: METOCLOPRAMIDE 10 MG TAB PO SCH ×3 (11:32→21:50)
--- NOTE | 2018-05-11 16:12 | ASMTCMCOM ---
CM Note CM Note Notes: Demetra tear, drain clamped HOB to slowly raise. Patient complains of headache. Therapies not involved as yet. Date Signed: 05/11/2018 04:12 PM Electronically Signed By:Destiny Green LCSW
[2018-05-11] MEDS: PATCH REMOVAL 1 EA PATCH TD SCH (21:50)
[2018-05-12] MEDS: METOCLOPRAMIDE 10 MG TAB PO SCH ×4 (03:36→22:23)
[2018-05-12] MEDS: oxyCODONE IR 5 MG TAB PO PRN ×4 (03:36→20:07)
[2018-05-12] MEDS: GABAPENTIN 100 MG CAP PO SCH ×3 (07:27→22:25)
--- NOTE | 2018-05-12 08:41 | NEUSURGPN ---
Date of Surgery: 05/05/18 Post Op Day: 7 Assessment/Plan: Assessment: 62 y/o female s/p L2-4 laminectomy/TLIF/PSF with repair of intraoperative durotomy POD#6 Plan: -Optimize pain management -Flat for 7 days (05/12), LD removed this am, site sutured, no drainage seen. Will leave flat x1hour then ok to go to radiology for xrays that have been ordered. -Bowel protocol, avoid straining x2 weeks -Post op xrays pending for once up and OOB, will also get cervical xrays (she is s/p ACDF 6 wks ago)-ordered for 05/12/18 -DVT prophx: TEDs, SCDs, ok to restart morning of 05/13 -PT/OT-extremity exercises with HOB flat if able -Transfer to Med Surg -Does not IV replaced -Please notify NS with any change in neuro/motor exam Discussed patient with Dr York Subjective: doing well, denies headache Objective: AxO x4 PERRLA CAPONE x4 5/5 BUE, BLE Sensation intact to light touch BLE Dressing/incision CDI Neuro Check Frequency: per routine Urinary Catheter in Place: No Catheter Insertion Date: 05/05/18 - Physician Discussed Patient with Dr.: York Neurosurgery Physical Exam - Vitals, I&O, Labs I and O 05/11/18 05/12/18 05/13/18 05:59 05:59 05:59 Intake Total 3050 1300 Output Total 3850 1325 Balance -800 -25 Intake: Oral (ml) 3050 1300 Output: Urine (ml) 3500 1325 Catheter 3500 1325 CSF Drainage Amount 350 Lumbar Drain 350 Other: Number of Voids Toilet 2 Number of Stools Catheter 1 Vital Signs Temp Pulse Resp BP Pulse Ox 36.9 C 60 14 104/55 L 90 L 05/12/18 07:48 05/12/18 07:48 05/12/18 07:48 05/12/18 07:48 05/12/18 07:48 Laboratory Results 05/08/18 08:00 05/08/18 08:00 ICD10 Worksheet Patient Problems: Problems Problem Status Onset Osteoarthritis of left knee Acute Primary localized osteoarthritis of right hip Acute
--- NOTE | 2018-05-12 08:59 | PDINTPN ---
Activities Coordinator Progress Note Assessment/Plan: Assessment/Plan: 62 F with chronic back pain and remote laminectomy resulting in mild foot drop. She underwent cervical fusion recently without complication and proceeded with lumbar surgery this admit which was complicated by a dural tear requiring durotomy. She has been stable since but requires supine positioning and lumbar drain for 7 days per neurosurgery. * Dural tear/CSF leak- stable on day#5 of 7 supine and lumbar drain/GLENN. plans per NS include clamp LD 05/11 with dc 05/12. GLENN dc'd 05/09 -lumbar drain now out * HTN- controlled * GERD- complained of minor gerd symptoms so started scheduled pepcid. added simethicone, prn tums. * chronic constipation in bowel protocol. OK to change reglan to PO from IV * Pain-worsened with elevation of head of bed * VT prophylaxis * Stress ulcer prophylaxis * Disposition-okay for transfer to floor Subjective: Resting comfortably. Pain well controlled. Objective: Vital Signs Temp Pulse Resp BP Pulse Ox 36.9 C 60 14 104/55 L 90 L 05/12/18 07:48 05/12/18 07:48 05/12/18 07:48 05/12/18 07:48 05/12/18 07:48 Laboratory Results 05/08/18 08:00 05/08/18 08:00 05/11/18 05/12/18 05/13/18 05:59 05:59 05:59 Intake Total 3050 1300 Output Total 3850 1325 Balance -800 -25 - Time Spent With Patient Time Spent With Patient: 35 min of time spent with patient, over 1/2 involved with coordination of care counseling. Case discussed with Neurosurgery and nursing Physical Exam - Physical Exam General Appearance: alert, no apparent distress EENT: PERRL/EOMI Neck: non-tender, full range of motion Respiratory: chest non-tender, lungs clear, normal breath sounds Cardiac/Chest: normal peripheral pulses, regular rate, rhythm Peripheral Pulses: 2+: carotid (R), carotid (L), femoral (R), femoral (L), dorsalis-pedis (R), dorsalis-pedis (L) Abdomen: normal bowel sounds, non-tender, soft Pelvic Exam: deferred Rectal: deferred Skin: normal color, warm/dry Extremities: non-tender Neuro/Psych: no motor/sensory deficits, alert, normal mood/affect, oriented x 3 ICD10 Worksheet Patient Problems: Problems Problem Status Onset Osteoarthritis of left knee Acute Primary localized osteoarthritis of right hip Acute
[2018-05-12] MEDS: LIDOCAINE 4%/MENTHOL 1% PATCH TD SCH (09:24)
[2018-05-12] MEDS: MULTIVITAMINS 1 EACH TAB PO SCH (09:25)
[2018-05-12] MEDS: SPIRONOLACTONE 25 MG TAB PO SCH ×2 (09:25→20:08)
[2018-05-12] MEDS: METHOCARBAMOL 750 MG TAB PO SCH ×3 (09:25→22:25)
[2018-05-12] MEDS: FAMOTIDINE 20 MG TAB PO SCH ×2 (09:25→20:08)
[2018-05-12] MEDS: LOSARTAN POTASSIUM 50 MG TAB PO SCH (09:25)
[2018-05-12] MEDS: HYDROCHLOROTHIAZIDE 25 MG TAB PO SCH (09:26)
[2018-05-12] MEDS: SENNOSIDES/DOCUSATE SODIUM TAB PO SCH ×2 (09:26→20:08)
[2018-05-12] MEDS: PATCH REMOVAL 1 EA PATCH TD SCH (14:34)
[2018-05-13] MEDS: METOCLOPRAMIDE 10 MG TAB PO SCH ×3 (04:17→15:15)
[2018-05-13] MEDS: oxyCODONE IR 5 MG TAB PO PRN ×3 (04:17→14:19)
[2018-05-13] MEDS: DIAZEPAM 5 MG TAB PO PRN (04:19)
--- NOTE | 2018-05-13 07:39 | SOAPPROG ---
SOAP Progress Note Assessment/Plan: Assessment: 62 yo F sp L2-4 TLIF Plan: stable PT/OT scd/meche/lovenox for dvt prophylaxis dc home today please call with neuro changes discussed with Dr York 05/13/18 07:38 Subjective: back pain improving, some pain in hamstring that is off/on, no headaches. Objective: Vital Signs Temp Pulse Resp BP Pulse Ox 36.3 C 56 L 16 102/57 L 93 05/13/18 04:30 05/13/18 04:30 05/13/18 04:30 05/13/18 04:30 05/13/18 04:30 Laboratory Results 05/08/18 08:00 05/08/18 08:00 05/12/18 05/13/18 05/14/18 05:59 05:59 05:59 Intake Total 1300 750 Output Total 1325 Balance -25 750 AAOx4, +FC PERRL, EOMI, no facial droop 5/5 + light touch C/D/I ICD10 Worksheet Patient Problems: Problems Problem Status Onset Osteoarthritis of left knee Acute Primary localized osteoarthritis of right hip Acute
[2018-05-13] MEDS: LIDOCAINE 4%/MENTHOL 1% PATCH TD SCH (08:31)
[2018-05-13] MEDS: FAMOTIDINE 20 MG TAB PO SCH (08:32)
[2018-05-13] MEDS: GABAPENTIN 100 MG CAP PO SCH ×2 (08:32→15:24)
[2018-05-13] MEDS: HYDROCHLOROTHIAZIDE 25 MG TAB PO SCH (08:32)
[2018-05-13] MEDS: MULTIVITAMINS 1 EACH TAB PO SCH (08:32)
[2018-05-13] MEDS: SENNOSIDES/DOCUSATE SODIUM TAB PO SCH (08:32)
[2018-05-13] MEDS: METHOCARBAMOL 750 MG TAB PO SCH ×2 (08:32→15:15)
[2018-05-13] MEDS: SPIRONOLACTONE 25 MG TAB PO SCH (08:33)
[2018-05-13] MEDS: LOSARTAN POTASSIUM 50 MG TAB PO SCH (08:33)
[2018-05-13] MEDS: POLYETHYLENE GLYCOL 3350 17 GM PKT PO PRN (08:34)
[2018-05-13] MEDS: MAGNESIUM HYDROXIDE 30 ML UDCUP PO PRN (08:34)
--- NOTE | 2018-05-13 12:06 | PDIAF ---
- Diagnosis Code Status: Full Code - Medication Management Discharge Medications: electronically signed and located in the Home Medication List. PICC Care - Routine: N/A - Orders Services needed: Home Care, Registered Nurse, Physical Therapy, Occupational Therapy Home Care Face to Face: I certify that this patient was under my care and that I had the required [id number] encounter meeting the encounter requirements on the discharge day. My findings support the fact that the patient is homebound as defined in Home Care Face to Face Continued: CMS Chapter 7 Medicare Benefits Manual 30.1.1 , The condition of the patient is such that there exists a normal inability to leave home and consequently, leaving home would require a considerable and taxing effort. Isolation Type: None Diet Recommendation: no restrictions on diet Diet Texture: Regular Texture Diet Mark: No Equipment: LSO brace when out of bed Additional Instructions: follow up with Dr York in 2 weeks discharge with lumbar fusion post op instructions - Follow Up Care Current Providers and Referrals: MELO CARTER [Other]
--- NOTE | 2018-05-13 14:39 | PDHOMEO2F ---
Home Oxygen Face to Face Home Orders: I certify that a physician or a nurse practitioner or physician's technical assistant has had a [id number] encounter with this patient on the date of this order due to the diagnosis listed, which relates to the primary reason the patient requires home oxygen. Alternative treatments have been tried, or considered, and deemed ineffective. It is anticipated that supplemental oxygen will result in improvement with treatment. Home oxygen qualifying diagnosis: post op hyoxia, atalectasis SpO2 on room air (%): 84 Frequency of home oxygen needed: continuous Home oxygen liters per minute: 2 Home oxygen delivery device: nasal cannula Concentrator: Yes E-tanks for mobility and back up: Yes If ordering portable O2, is the patient mobile in the home?: Yes I certify that, based on these findings, the home oxygen is medically necessary for this patient for the following length of time. Length of time home oxygen needed: 1 week
--- NOTE | 2018-05-13 15:04 | ASDISCHSUM ---
Discharge Information Plan Status:Home with Home Health Medically Cleared to Leave:05/12/2018 Discharge Date:05/12/2018 D/C Disposition:Home Health Service [facility] D/C Disposition:Home, Routine, Self-Care Projected Discharge Date:05/13/2018 11:00 AM Transportation at D/C: Discharge Delay Reason: Follow-Up Date:05/13/2018 11:00 AM Discharge Slot: Final Diagnosis:Spinal stenosis, DJD, Back pain Placement Information Referral Type:*Home Health Care Services Referral ID:[id number] Provider Name:[facility] Address 1:[address] Address 2: City:[place] Selection Factors: State:[place] Patient Contact Information Contact Name:BALJINDER Relationship:Son Address: City:[place] Alternate Phone: State/Zip Code:[place] Email: Financial Information Financial Class:HMO and PPO Plans Primary Plan Desc:[facility] Primary Plan Number:[id number] Secondary Plan Desc: Secondary Plan Number: Assessment Information LACE LACE Length of stay for Answers: 7-13 days current admission Acuity / Level of Answers: Yes Care: Did the patient have an inpatient admission? Comorbidities - select Answers: Opioid dependence all that apply / Chronic pain Other Notes: HTN # of Emergency department Answers: 0 visits in the last 6 months Social determinants Answers: Mental health diagnosis (anxiety, depression, pers onality disorders, etc.) Score: 16 Date Signed: 05/13/2018 03:03 PM Electronically Signed By:TAMAR Alvarado [facility] Initial CM Assessment Living Arrangements What is your living Answers: Alone arrangement? Who do you live with? Type Of Residence What kind of residence do Answers: House you live in? Discharge Plan Comments Coordination Status Comments Notes: Patient is a 62yo female who was admitted for spinal surgery and currently has a lumbar drain scheduled for bed rest for the next week. OT/PT have been ordered for the patient when she is able. D/C plan TBD. CM will follow. Date Signed: 05/06/2018 11:54 AM Electronically Signed By:Brianne Irwin LCSW [facility] Progress Note CM Note CM Note Notes: Patient remains on bed rest. Therapies will eval when patient is able to participate. CM will follow. Date Signed: 05/08/2018 04:19 PM Electronically Signed By:Brianne Irwin LCSW [facility] CM Progress Note CM Note CM Note Notes: Demetra tear, drain clamped HOB to slowly raise. Patient complains of headache. Therapies not involved as yet. Date Signed: 05/11/2018 04:12 PM Electronically Signed By:Destiny Green LCSW Case Management Discharge Plan Note Case Management Discharge Discharge Order Complete? Answers: Yes Patient to Obtain Answers: via Family Medications Transportation Arranged Answers: Family/Friends Faxed Final Orders Answers: Yes Agency/Facility Transfer Answers: Yes Report Printed & Faxed to Receiving Agency Discharge Comments Notes: CM spoke with MD and RN. Pt being discharged on [facility]. Pt discussed discharge plan with pt and agreeable. Family to transport. No other CM needs identified. Date Signed: 05/13/2018 03:01 PM Electronically Signed By:TAMAR Alvarado Intervention Information
[2018-05-13 16:29] VITALS: BP 104/58
== END 2018-05-13 18:40 | disposition home health service (06) | DRG 454 ==
LOC: F3N 07:54 → F2N 14:39 → F3N 05-12 12:12
PROVIDERS: ADMIT Neurological Surgery; ATTEND Neurological Surgery
PROC: 0SG10AJ Fusion of 2 or more Lumbar Vertebral Joints with Interbody Fusion Device, Posterior Approach, Anterior Column, Open Approach (ICD-10-PCS; principal; 2018-05-05 09:30)
PROC: 00NY0ZZ Release Lumbar Spinal Cord, Open Approach (ICD-10-PCS; principal; 2018-05-05 09:30)
PROC: 00Q20ZZ Repair Dura Mater, Open Approach (ICD-10-PCS; principal; 2018-05-05 09:30)
PROC: 0SG1071 Fusion of 2 or more Lumbar Vertebral Joints with Autologous Tissue Substitute, Posterior Approach, Posterior Column, Open Approach (ICD-10-PCS; principal; 2018-05-05 09:30)
PROC: 8E0WXBZ Computer Assisted Procedure of Trunk Region (ICD-10-PCS; principal; 2018-05-05 09:30)
PROC: 4A1004G Monitoring of Central Nervous Electrical Activity, Intraoperative, Open Approach (ICD-10-PCS; principal; 2018-05-05 09:30)
DX: M48.061 Spinal stenosis, lumbar region without neurogenic claudication (principal); G97.41 Accidental puncture or laceration of dura during a procedure; M47.26 Other spondylosis with radiculopathy, lumbar region; I10 Essential (primary) hypertension; K59.09 Other constipation; K21.9 Gastro-esophageal reflux disease without esophagitis; Z98.1 Arthrodesis status; Z87.891 Personal history of nicotine dependence
CPT/HCPCS: 97116-GP; 97161-GP; 97165-GO; 97535-GO; C1713; J0690; J1100; J1650; J2270; J2274; J2405; J2704; J2765; J2780; J3010; P9041

== ENCOUNTER 2018-05-26 09:14 | Emergency (ER) | payer OTHER ==
--- NOTE | 2018-05-26 09:41 | EDPHY ---
H & P Time Seen by Provider: 05/26/18 09:18 HPI/ROS: This patient sustained injuries from a mechanical fall her 1st day back to work after recovering from lumbar spine fusion performed on 05/05/[address] Oconnell follow-up. She was at the end of her day was stepping through door that had at uneven surface in the floor and caught her right toe causing her to pitch forward and fall on outstretched left hand with left wrist pain is her main complaint. The left wrist pain is mild at baseline becomes severe with any movement. She arrives wearing a cmnn-lyj-binlycm Velcro wrist splint and reports some improvement with the wrist splint. She also complains of right lower rib pain anteriorly that is mild to moderate baseline becomes sharp with a deep breath. Certain movement also causes pain in the area. Finally, she reports that she has a rug burn to the right knee and feels slight stiffness in that knee but does not think she has a significant injury and ambulates without difficulty since the incident. ROS: Constitutional: She felt well prior to the mechanical fall HEENT: No facial injuries Neuro: No focal numbness tingling weakness since the fall. She denies any midline neck or back pain since the fall Pulmonary: No dyspnea. No hemoptysis Cardiovascular no complaints GI: No abdominal pain, nausea or vomiting 10 point review of symptoms is performed and otherwise negative with exception of pertinent positives and negatives listed in HPI and ROS Past Medical/Surgical History: Cervical fusion March 26 2018 Lumbar fusion 05/05/2018 Smoking Status: Former smoker Physical Exam: General Appearance: Alert, no distress. Eyes: Pupils equal and round no pallor or injection. ENT, -atraumatic Mouth: Mucous membranes moist. Neck: No midline tenderness Back: No significant midline tenderness, surgical incision lumbar spine is clean dry intact Respiratory: There are no retractions, lungs are clear to auscultation. Patient has right anterior lower rib tenderness and also has pain at the area with anterior sternal compression. No crepitance. Cardiovascular: Regular rate and rhythm. No murmur gallop or rub Gastrointestinal: Abdomen is soft and nontender, no masses, bowel sounds normal. Neurological: GCS 15 with no focal deficits appreciated Skin: Warm and dry, no rashes. Musculoskeletal: Neck is supple nontender. Extremities are symmetrical, atraumatic full range of motion with exception of left hand/wrist Left upper extremity: No shoulder tenderness. She has wrist tenderness the carpal bones dorsally and limited range of motion due to pain. No associated hand swelling or tenderness. There is slight ecchymosis associated with her wrist exam though she reports this may be residual from IVs while she was in the hospital for spinal surgery Right knee: Patient has a superficial abrasion without bleeding or contamination to the prepatellar area with associated minimal tenderness but no ecchymosis or swelling to the patella no patellar apprehension with lateral movement or medial movement, she retains full range of motion of the knee and Courtney's is negative for laxity. Varus and valgus stress without laxity or pain Psychiatric: Patient is oriented X 3, there is no agitation. DIFFERENTIAL DIAGNOSIS: After history and physical exam differential diagnosis was considered for rib contusion, rib fracture, pneumothorax, hemothorax, wrist sprain, wrist fracture, wrist contusion, knee abrasion/knee contusion Constitutional: Initial Vital Signs Temperature (C) 36.7 C 05/26/18 09:36 Heart Rate 72 05/26/18 09:36 Respiratory Rate 20 05/26/18 09:36 Blood Pressure 134/89 H 05/26/18 09:36 O2 Sat (%) 96 05/26/18 09:36 O2 Delivery Mode Room Air Allergies/Adverse Reactions: midazolam Allergy (Unknown, Unverified 05/13/18 11:30) prefers not to have tramadol Allergy (Verified 04/02/18 10:12) causes her to feel like she can't breath Home Medications: Medication Instructions Recorded Cholecalciferol Vit D3 [Vitamin D3 1,000 units PO DAILY 10/22/16 (*)] Cyanocobalamin [Vitamin B12 (*)] 1,000 mcg PO DAILY 10/22/16 Hydrochlorothiazide [HCTZ (*)] 25 mg PO DAILY 10/22/16 Losartan Potassium [Cozaar] 100 mg PO DAILY 10/22/16 Multivitamins [Multivitamin (*)] 1 each PO DAILY 10/22/16 Spironolactone [Aldactone 25 MG 25 mg PO BID 10/22/16 (*)] Acetaminophen [Tylenol 325mg (*)] 650 mg PO BID 04/18/17 Acetaminophen [Tylenol 325mg (*)] 650 mg PO Q6HRS tab 05/24/17 Diazepam [Valium 5 MG (*)] 5 mg PO Q6HRS PRN #50 tab 03/27/18 Sennosides/Docusate Sodium 1 - 2 tab PO BID tab 03/27/18 [Senokot-S] oxyCODONE IR [Oxycodone Ir (*)] 5 - 10 mg PO Q4HRS PRN #70 tab 03/27/18 Gabapentin [Neurontin 100 MG (*)] 200 mg PO TID cap 05/13/18 MDM/Departure - MDM Diagnostics: Wrist x-rays: Dorsal avulsion fracture-triquetrum will by my interpretation Imaging Results: Imaging Impressions Ribs w/Chest X-Ray 05/26/18 09:35 Impression: Negative. No acute rib fracture, pneumothorax or effusion. Wrist X-Ray 05/26/18 09:35 Impression: 1. Age indeterminate triquetral fracture. 2. Intact navicular bone and distal radius. ED Course/Re-evaluation: The patient declined analgesics. Orthoglass sugar-tong placed by our tech with my supervision. Patient is neurovascular intact post splint application I counseled patient regarding rib contusion and triquetrum fracture. She has no evidence of pneumothorax, hemothorax, displaced rib fracture, neurovascular compromise or other red flag findings today. She will follow up with Orthopedics regarding her wrist fracture. She understands need to return emergency department should she develop any significant worsening of her symptoms despite treatment plan. She declined any analgesics while in the emergency department citing a preference for [id number] analgesics. - Depart Disposition: Home, Routine, Self-Care Clinical Impression: Rib contusion Qualifiers: Encounter type: initial encounter Laterality: right Qualified Code(s): S20.211A - Contusion of right front wall of thorax, initial encounter Triquetral fracture Qualifiers: Encounter type: initial encounter Fracture type: closed Fracture alignment: nondisplaced Laterality: left Qualified Code(s): S62.115A - Nondisplaced fracture of triquetrum [cuneiform] bone, left wrist, initial encounter for closed fracture Condition: Good Instructions: Wrist Fracture in Adults (ED) Additional Instructions: Diagnosis: Triquetrum fracture 2. Rib contusion Plan: Tylenol for pain Ice in addition Keep the splint on clean and dry at all times Call Dr. Rojas, orthopedic physician of your choice to arrange follow-up appointment for a recheck and for casting for sometime within the next 2 to a 5 days Referrals: Doctor Not,On Staff, [Primary Care Provider] - As per Instructions Ronnie Rojas MD [Medical Doctor] - As per Instructions
[2018-05-26 10:37] VITALS: BP 136/86
== END 2018-05-26 10:49 | disposition home or self-care (01) ==
LOC: CED 09:14
PROC: 2W3FX1Z Immobilization of Left Hand using Splint (ICD-10-PCS; principal; 2018-05-26)
DX: S62.115A Nondisplaced fracture of triquetrum [cuneiform] bone, left wrist, initial encounter for closed fracture (principal); S20.211A Contusion of right front wall of thorax, initial encounter; W19.XXXA Unspecified fall, initial encounter; Z87.891 Personal history of nicotine dependence; Y92.89 Other specified places as the place of occurrence of the external cause; Y99.0 Civilian activity done for income or pay; Y93.9 Activity, unspecified
CPT/HCPCS: 71101-PO; 73110-PO; 99284-ER

== ENCOUNTER → 2018-07-03 | Outpatient (CLI) | payer OTHER | LOC: FIMAGING 09:59 | PROVIDERS: ATTEND Neurological Surgery | DX: M50.31 Other cervical disc degeneration, high cervical region (principal); M51.35 Other intervertebral disc degeneration, thoracolumbar region; M43.16 Spondylolisthesis, lumbar region; M41.86 Other forms of scoliosis, lumbar region; Z98.1 Arthrodesis status ==

== ENCOUNTER → 2018-09-23 | Outpatient (CLI) | payer OTHER ==
[~2018-09-23] MED LIST changes: +DEPO METHYLPREDNISOLONE 80 MG/ML SDV ONE; +IOPAMIDOL (ISOVUE 370) 100 ML BTL IV ONE; +LIDOCAINE 1% 300 MG/30 ML SDV ONE; -ROPIVACAINE 0.2% 80 MG, EPINEPHrine 0.2 MG, KETOROLAC TROMETHAMINE 30 MG in SYRINGE 0 ML IU ONE; +ROPIVACAINE HCL 150 MG/30 ML INJ ONE; -TRANEXAMIC ACID 3,000 MG in NS 50 ML IRR ONE
== END ==
LOC: FIMAGING 09:58
PROVIDERS: ATTEND Orthopaedic Surgery
PROC: 3E0U33Z Introduction of Anti-inflammatory into Joints, Percutaneous Approach (ICD-10-PCS; principal; 2018-09-23)
DX: M25.551 Pain in right hip (principal); Z96.641 Presence of right artificial hip joint
CPT/HCPCS: J1040; J2795; Q9967

== ENCOUNTER → 2018-10-01 | Outpatient (CLI) | payer OTHER | LOC: FIMAGING 13:16 | PROVIDERS: ATTEND Nurse Practitioner | DX: M47.26 Other spondylosis with radiculopathy, lumbar region (principal); M48.02 Spinal stenosis, cervical region; M54.2 Cervicalgia; Z98.1 Arthrodesis status ==